=== PATIENT | female | born 1950 | race Caucasian/White ===

== ENCOUNTER → 2016-12-13 | Outpatient (CLI) | payer MEDICARE ==
--- NOTE | 2016-12-14 07:19 | MM ---
Reason for exam: additional evaluation requested from abnormal screening. Last mammogram was performed 1 month ago. History: Patient is postmenopausal, history of other cancer, and is nulliparous. Physical Findings: Nurse Summary: 1cm nodule in the right breast at 1 o'clock (nurse kp). MG Work Up Mamm w CAD RT MLO and LM view(s) were taken of the right breast. Prior study comparison: November 24, 2016, bilateral MG screening mammo w CAD. November 19, 2015, bilateral MG screening mammo w CAD. The breast tissue is heterogeneously dense. This may lower the sensitivity of mammography. Skin marker corresponds to a sebaceous cyst. Ultrasound recommended for palpable. These results were verbally communicated with the patient and result sheet given to the patient on 12/13/16. ASSESSMENT: Incomplete: need additional imaging evaluation, BI-RAD 0 RECOMMENDATION: Ultrasound of the right breast.
--- NOTE | 2016-12-14 07:20 | USB ---
Reason for exam: additional evaluation requested from abnormal screening. History: Patient is postmenopausal, history of other cancer, and is nulliparous. US Breast Workup Limited RT Right breast ultrasound demonstrates no cystic or solid lesion seen. These results were verbally communicated with the patient and result sheet given to the patient on 12/13/16. ASSESSMENT: Negative, BI-RAD 1 RECOMMENDATION: Return to routine screening mammogram schedule for both breasts. Manage patient on a clinical basis.
== END | disposition home or self-care (01) ==
LOC: RADMAMWWP 10:48
PROVIDERS: ATTEND Family Medicine
DX: R92.2 Inconclusive mammogram (principal); R92.8 Other abnormal and inconclusive findings on diagnostic imaging of breast
CPT/HCPCS: 76642; G0206

== ENCOUNTER → 2018-01-08 | Outpatient (CLI) | payer MEDICARE ==
--- NOTE | 2018-01-09 11:24 | MM ---
Reason for exam: screening (asymptomatic). Last mammogram was performed 1 year and 1 month ago. History: Patient is postmenopausal, history of other cancer, and is nulliparous. Physical Findings: A clinical breast exam by your physician is recommended on an annual basis and results should be correlated with mammographic findings. MG Screening Mammo w CAD Bilateral CC and MLO view(s) were taken. Prior study comparison: December 13, 2016, right breast MG work up mamm w CAD RT. November 24, 2016, bilateral MG screening mammo w CAD. The breast tissue is heterogeneously dense. This may lower the sensitivity of mammography. There is no discrete abnormality. No significant changes when compared with prior studies. ASSESSMENT: Negative, BI-RAD 1 RECOMMENDATION: Routine screening mammogram of both breasts in 1 year.
== END | disposition home or self-care (01) ==
LOC: RADMAMWWP 14:15
PROVIDERS: ATTEND Family Medicine
DX: Z12.31 Encounter for screening mammogram for malignant neoplasm of breast (principal)
CPT/HCPCS: 77067

== ENCOUNTER → 2019-01-10 | Outpatient (CLI) | payer MEDICARE ==
--- NOTE | 2019-01-10 16:18 | BD ---
EXAMINATION TYPE: Axial Bone Density DATE OF EXAM: 01/10/2019 COMPARISON: 09.23.2014 CLINICAL HISTORY: 68 YR OLD FEMALE....ICD-10 CODE: Z78.0 POST MENOPAUSAL W/O HRT Height: 65.2 Weight: 226 FRAX RISK QUESTIONS: Family History (Parent hip fracture): YES, SPINE FX ONLY History of Fracture in Adulthood: YES RISK FACTORS HISTORY OF: HX OF BOTH FEET BROKEN, LT HAND FX....> 50 YRS OLD, RT COLLAR BONE CHILD Family History of Osteoporosis: YES, HER MOTHER WITH COMPRESSION FX OF SPINE Postmenopausal woman: YES, AT 48 YRS OLD MEDICATIONS: Osteoporosis Medications: IN THE PAST ONLY, STOPPED 10 YRS AGO Additional Medications: BP MEDS, STATINS FOR CHOLESTEROL, VIT D AND CALCIUM Additional History: HYPERTENSION, CHOLESTEROL EXAM MEASUREMENTS: Bone mineral densitometry was performed using the [employer] System. Bone mineral density as measured about the Lumbar spine is: ----- L1-L4(G/cm2): 1.289 T Score Values are as follows: ----- L1: 0.4 ----- L2: 0.7 ----- L3: 0.9 ----- L4: 1.4 ----- L1-L4: 0.9 Bone mineral density has: Increased 3.4% since study of: 09.23.2014 Bone mineral density about the R hip (g/cm2): 0.970 Bone mineral density about the L hip (g/cm2): 1.084 T Score values are as follows: -----R Neck: -0.6 -----L Neck: -0.7 -----R Total: -0.3 -----L Total: 0.6 Bone mineral density has: Decreased -1.6% since study of: 09.23.2014 FRAX%s: THERE IS A 11.9% CHANCE FOR A MAJOR OSTEOPOROTIC FX AND A 0.8% FOR HIP....PROBABILITY OF FX IN 10 YRS TIME IMPRESSION: Normal (Values between +1 and -1 indicate normal bone mass). Consider repeating this study in 5 year s or sooner if there is some new clinical indication. NOTE: T-SCORE=SD OF THE YOUNG ADULT MEAN.
--- NOTE | 2019-01-11 09:45 | MM ---
Reason for exam: screening (asymptomatic). Last mammogram was performed 1 year ago. History: Patient is postmenopausal, history of other cancer, and is nulliparous. Physical Findings: A clinical breast exam by your physician is recommended on an annual basis and results should be correlated with mammographic findings. MG Screening Mammo w CAD Bilateral CC and MLO view(s) were taken. XCCL view(s) were taken of the left breast. Prior study comparison: January 08, 2018, bilateral MG screening mammo w CAD. December 13, 2016, right breast MG work up mamm w CAD RT. The breast tissue is heterogeneously dense. This may lower the sensitivity of mammography. No suspicious abnormality. No significant changes when compared with prior studies. ASSESSMENT: Negative, BI-RAD 1 RECOMMENDATION: Routine screening mammogram of both breasts in 1 year.
== END | disposition home or self-care (01) ==
LOC: RADMAMWWP 13:33
PROVIDERS: ATTEND Family Medicine
DX: Z12.31 Encounter for screening mammogram for malignant neoplasm of breast (principal); Z13.820 Encounter for screening for osteoporosis; Z78.0 Asymptomatic menopausal state
CPT/HCPCS: 77067; 77080

== ENCOUNTER 2019-08-27 10:55 | Inpatient (IN) | payer MEDICARE ==
--- NOTE | 2019-08-27 11:50 | ED ---
General Adult HPI - General Chief complaint: Recheck/Abnormal Lab/Rx Stated complaint: Low Blood Time Seen by Provider: 08/27/19 11:05 Source: patient, RN notes reviewed Mode of arrival: ambulatory Limitations: no limitations - History of Present Illness Initial comments: This is a 68-year-old female presents emergency Department complaining that for the last week she's had a low-grade fever and a slight cough. Patient states also for the last 2 weeks she's been extremely tired. Patient states she has been treated with Augmentin Levaquin steroids and breathing treatments. Patient states nothing has seemed to help. Patient states she went to her primary medical care doctor's office couple days ago and he ozzy blood and today she got a call stating her hemoglobin was extremely low. Patient denies any black or bloody stools per patient denies any history of anemia. Patient denies any chest pain. Patient states she is short of breath anytime she exerts herself. Patient denies any abdominal pain patient denies any nausea vomiting diarrhea. Patient denies headache patient denies lightheadedness or dizziness. - Related Data Home Medications Medication Instructions Recorded Confirmed Aspirin EC [Ecotrin] 325 mg PO DAILY PRN 08/27/19 08/27/19 Bisoprolol/Hydrochlorothiazide 1 tab PO DAILY 08/27/19 08/27/19 [Bisoprolol-Hctz 5-6.25 mg Tab] Multivitamins, Thera [Multivitamin 1 tab PO DAILY 08/27/19 08/27/19 (formulary)] Allergies Allergy/AdvReac Type Severity Reaction Status Date / Time adhesive tape Allergy Rash/Hives Verified 08/27/19 11:17 Review of Systems ROS Statement: Those systems with pertinent positive or pertinent negative responses have been documented in the HPI. ROS Other: All systems not noted in ROS Statement are negative. Past Medical History Past Medical History: Hypertension History of Any Multi-Drug Resistant Organisms: None Reported Past Surgical History: Orthopedic Surgery Past Psychological History: No Psychological Hx Reported Smoking Status: Never smoker Past Alcohol Use History: None Reported Past Drug Use History: None Reported General Exam - General Exam Comments Initial Comments: GENERAL: Patient is well-developed and well-nourished. Patient is nontoxic and well- hydrated and is in mild distress. ENT: Neck is soft and supple. No significant lymphadenopathy is noted. Oropharynx is clear. Moist mucous membranes. Neck has full range of motion without eliciting any pain. EYES: The sclera were anicteric and conjunctiva were pink and moist. Extraocular movements were intact and pupils were equal round and reactive to light. Eyelids were unremarkable. PULMONARY: Patient has some scattered crackles in the bases. CARDIOVASCULAR: Patient is tachycardic at about 110 beats a minute ABDOMEN: Soft and nontender with normal bowel sounds. No palpable organomegaly was note d. There is no palpable pulsatile mass. SKIN: Patient's skin is pale RECTAL: On rectal exam there was no masses palpated stool is of normal color. NEUROLOGIC: Patient is alert and oriented x3. Cranial nerves II through XII are grossly intact. Motor and sensory are also intact. Normal speech, volume and content. Symmetrical smile. MUSCULOSKELETAL: Normal extremities with adequate strength and full range of motion. LYMPHATICS: No significant lymphadenopathy is noted PSYCHIATRIC: Normal psychiatric evaluation. Limitations: no limitations Course Vital Signs 08/27/19 08/27/19 08/27/19 11:08 11:30 12:00 Temperature 98.8 F Pulse Rate 102 H 101 H 96 Respiratory 18 20 20 Rate Blood Pressure 123/51 140/58 133/54 O2 Sat by Pulse 99 100 94 L Oximetry 08/27/19 13:42 Temperature 98.8 F Pulse Rate 87 Respiratory 20 Rate Blood Pressure 121/56 O2 Sat by Pulse 98 Oximetry Medical Decision Making - Medical Decision Making Chest x-ray shows no acute abnormality. I spoke with Dr. Call about admitting the patient and he agreed to admit the patient I consult to GI neck consult hematology. I also gave the patient 2 units of packed red blood cells her. Hemoglobin on the floor. - Lab Data Result diagrams: 08/27/19 11:28 08/27/19 11:28 Lab Results 08/27/19 08/27/19 08/27/19 Range/Units 11:28 11:28 11:28 WBC 4.9 (3.8-10.6) k/uL RBC 1.70 L (3.80-5.40) m/uL Hgb 4.8 L* (11.4-16.0) gm/dL Hct 13.7 L* (34.0-46.0) % MCV 80.4 (80.0-100.0) fL MCH 28.1 (25.0-35.0) pg MCHC 34.9 (31.0-37.0) g/dL RDW 15.1 (11.5-15.5) % Plt Count 317 (150-450) k/uL Neutrophils % 78 % Lymphocytes % 13 % Monocytes % 6 % Eosinophils % 1 % Basophils % 0 % Neutrophils # 3.8 (1.3-7.7) k/uL Lymphocytes # 0.7 L (1.0-4.8) k/uL Monocytes # 0.3 (0-1.0) k/uL Eosinophils # 0.0 (0-0.7) k/uL Basophils # 0.0 (0-0.2) k/uL PT (9.0-12.0) sec INR (<1.2) APTT (22.0-30.0) sec Sodium (137-145) mmol/L Potassium (3.5-5.1) mmol/L Chloride (98-107) mmol/L Carbon Dioxide (22-30) mmol/L Anion Gap mmol/L BUN (7-17) mg/dL Creatinine (0.52-1.04) mg/dL Est GFR (CKD-EPI)AfAm (>60 ml/min/1.73 sqM) Est GFR (CKD-EPI)NonAf (>60 ml/min/1.73 sqM) Glucose (74-99) mg/dL Plasma Lactic Acid Skip (0.7-2.0) mmol/L Calcium (8.4-10.2) mg/dL Magnesium (1.6-2.3) mg/dL Total Bilirubin (0.2-1.3) mg/dL AST (14-36) U/L ALT (9-52) U/L Alkaline Phosphatase (38-126) U/L NT-Pro-B Natriuret Pep pg/mL Total Protein (6.3-8.2) g/dL Albumin (3.5-5.0) g/dL Urine Color Urine Appearance (Clear) Urine pH (5.0-8.0) Ur Specific [place] (1.001-1.035) Urine Protein (Negative) Urine Glucose (UA) (Negative) Urine Ketones (Negative) Urine Blood (Negative) Urine Nitrite (Negative) Urine Bilirubin (Negative) Urine Urobilinogen (<2.0) mg/dL Ur Leukocyte Esterase (Negative) Urine WBC (0-5) /hpf Ur Squamous Epith Cells (0-4) /hpf Uric Acid Crystals (None) /hpf Hyaline Casts (0-2) /lpf Urine Mucus (None) /hpf Stool Occult Blood Negative (Negative) Blood Type AB Positive Blood Type Confirm Blood Type Recheck No Previous Record Bld Type Recheck Status CABO Indicated Antibody Screen NEGATIVE Crossmatch See Detail Spec Expiration Date 08/30/2019232708/27/19 08/27/19 08/27/19 Range/Units 11:28 11:28 11:28 WBC (3.8-10.6) k/uL RBC (3.80-5.40) m/uL Hgb (11.4-16.0) gm/dL Hct (34.0-46.0) % MCV (80.0-100.0) fL MCH (25.0-35.0) pg MCHC (31.0-37.0) g/dL RDW (11.5-15.5) % Plt Count (150-450) k/uL Neutrophils % % Lymphocytes % % Monocytes % % Eosinophils % % Basophils % % Neutrophils # (1.3-7.7) k/uL Lymphocytes # (1.0-4.8) k/uL Monocytes # (0-1.0) k/uL Eosinophils # (0-0.7) k/uL Basophils # (0-0.2) k/uL PT 11.4 (9.0-12.0) sec INR 1.1 (<1.2) APTT 22.8 (22.0-30.0) sec Sodium 139 (137-145) mmol/L Potassium 4.3 (3.5-5.1) mmol/L Chloride 106 (98-107) mmol/L Carbon Dioxide 22 (22-30) mmol/L Anion Gap 11 mmol/L BUN 18 H (7-17) mg/dL Creatinine 0.69 (0.52-1.04) mg/dL Est GFR (CKD-EPI)AfAm >90 (>60 ml/min/1.73 sqM) Est GFR (CKD-EPI)NonAf 89 (>60 ml/min/1.73 sqM) Glucose 170 H (74-99) mg/dL Plasma Lactic Acid Skip (0.7-2.0) mmol/L Calcium 8.7 (8.4-10.2) mg/dL Magnesium 2.0 (1.6-2.3) mg/dL Total Bilirubin 0.6 (0.2-1.3) mg/dL AST 34 (14-36) U/L ALT 53 H (9-52) U/L Alkaline Phosphatase 86 (38-126) U/L NT-Pro-B Natriuret Pep 646 pg/mL Total Protein 5.8 L (6.3-8.2) g/dL Albumin 3.5 (3.5-5.0) g/dL Urine Color Urine Appearance (Clear) Urine pH (5.0-8.0) Ur Specific [place] (1.001-1.035) Urine Protein (Negative) Urine Glucose (UA) (Negative) Urine Ketones (Negative) Urine Blood (Negative) Urine Nitrite (Negative) Urine Bilirubin (Negative) Urine Urobilinogen (<2.0) mg/dL Ur Leukocyte Esterase (Negative) Urine WBC (0-5) /hpf Ur Squamous Epith Cells (0-4) /hpf Uric Acid Crystals (None) /hpf Hyaline Casts (0-2) /lpf Urine Mucus (None) /hpf Stool Occult Blood (Negative) Blood Type Blood Type Confirm Blood Type Recheck Bld Type Recheck Status Antibody Screen Crossmatch Spec Expiration Date 08/27/19 08/27/19 08/27/19 Range/Units 11:28 12:39 13:10 WBC (3.8-10.6) k/uL RBC (3.80-5.40) m/uL Hgb (11.4-16.0) gm/dL Hct (34.0-46.0) % MCV (80.0-100.0) fL MCH (25.0-35.0) pg MCHC (31.0-37.0) g/dL RDW (11.5-15.5) % Plt Count (150-450) k/uL Neutrophils % % Lymphocytes % % Monocytes % % Eosinophils % % Basophils % % Neutrophils # (1.3-7.7) k/uL Lymphocytes # (1.0-4.8) k/uL Monocytes # (0-1.0) k/uL Eosinophils # (0-0.7) k/uL Basophils # (0-0.2) k/uL PT (9.0-12.0) sec INR (<1.2) APTT (22.0-30.0) sec Sodium (137-145) mmol/L Potassium (3.5-5.1) mmol/L Chloride (98-107) mmol/L Carbon Dioxide (22-30) mmol/L Anion Gap mmol/L BUN (7-17) mg/dL Creatinine (0.52-1.04) mg/dL Est GFR (CKD-EPI)AfAm (>60 ml/min/1.73 sqM) Est GFR (CKD-EPI)NonAf (>60 ml/min/1.73 sqM) Glucose (74-99) mg/dL Plasma Lactic Acid Skip 1.9 (0.7-2.0) mmol/L Calcium (8.4-10.2) mg/dL Magnesium (1.6-2.3) mg/dL Total Bilirubin (0.2-1.3) mg/dL AST (14-36) U/L ALT (9-52) U/L Alkaline Phosphatase (38-126) U/L NT-Pro-B Natriuret Pep pg/mL Total Protein (6.3-8.2) g/dL Albumin (3.5-5.0) g/dL Urine Color Yellow Urine Appearance Turbid H (Clear) Urine pH 5.0 (5.0-8.0) Ur Specific [place] 1.016 (1.001-1.035) Urine Protein Negative (Negative) Urine Glucose (UA) Negative (Negative) Urine Ketones Negative (Negative) Urine Blood Negative (Negative) Urine Nitrite Negative (Negative) Urine Bilirubin Negative (Negative) Urine Urobilinogen <2.0 (<2.0) mg/dL Ur Leukocyte Esterase Negative (Negative) Urine WBC 1 (0-5) /hpf Ur Squamous Epith Cells 1 (0-4) /hpf Uric Acid Crystals Occasional H (None) /hpf Hyaline Casts 11 H (0-2) /lpf Urine Mucus Occasional H (None) /hpf Stool Occult Blood (Negative) Blood Type Blood Type Confirm AB Positive Blood Type Recheck Bld Type Recheck Status Antibody Screen Crossmatch Spec Expiration Date Critical Care Time Critical Care Time: Yes Total Critical Care Time: 35 Disposition Clinical Impression: Anemia Disposition: ADMITTED IP TO THIS HOSP Referrals: Silvino Call MD [Primary Care Provider] - 1-2 days Time of Disposition: 13:46
[2019-08-27 11:59] LABS: Basophils % (A) 0 %; Eosinophils % (A) 1 %; Lymphocytes # (A) 0.7 k/uL (1.0-4.8); Lymphocytes % (A) 13 %; MCH 28.1 pg (25.0-35.0); MCHC 34.9 g/dL (31.0-37.0); MCV 80.4 fL (80.0-100.0); Mean Platelet Volume 7.1; Monocytes # (A) 0.3 k/uL (0-1.0); Monocytes % (A) 6 %; Neutrophils # (A) 3.8 k/uL (1.3-7.7); Neutrophils % (A) 78 %; Platelet Count 317 k/uL (150-450); RDW 15.1 % (11.5-15.5); WBC 4.9 k/uL (3.8-10.6)
[2019-08-27 12:12] LABS: ALT 53 U/L (9-52); AST 34 U/L (14-36); African American GFR (CKD) >90 (>60 ml/min/1.73 sqM); Albumin 3.5 g/dL (3.5-5.0); Alkaline Phosphatase 86 U/L (38-126); Anion Gap 11 mmol/L; Blood Urea Nitrogen 18 mg/dL (7-17); Calcium 8.7 mg/dL (8.4-10.2); Carbon Dioxide 22 mmol/L (22-30); Chloride 106 mmol/L (98-107); Glucose 170 mg/dL (74-99); Potassium 4.3 mmol/L (3.5-5.1); Sodium 139 mmol/L (137-145); Total Bilirubin 0.6 mg/dL (0.2-1.3); Total Protein 5.8 g/dL (6.3-8.2)
[2019-08-27 12:13] LABS: HCT 13.7 % (34.0-46.0); HGB 4.8 gm/dL (11.4-16.0)
[2019-08-27 12:18] LABS: INR 1.1 (<1.2); Partial Thromboplastin Time 22.8 sec (22.0-30.0); Prothrombin Time 11.4 sec (9.0-12.0)
[2019-08-27] MEDS ORDERED: SODIUM CHLORIDE 0.9% 500 ML 500 ML IV ONE (12:36)
--- NOTE | 2019-08-27 12:40 | XR ---
EXAMINATION TYPE: XR chest 2V DATE OF EXAM: 08/27/2019 COMPARISON: NONE TECHNIQUE: PA and lateral views submitted. HISTORY: Difficulty breathing FINDINGS: The lungs are clear and there is no pneumothorax, pleural effusion, or focal pneumonia. Degenerative change of the spine. IMPRESSION: 1. No acute process.
[2019-08-27 13:40] LABS: Appearance,Urine Turbid (Clear); Bilirubin,Urine Negative (Negative); Blood,Urine Negative (Negative); Color,Urine Yellow; Glucose,Urine (UA) Negative (Negative); Hyaline Casts,Urine 11 /lpf (0-2); Ketones,Urine Negative (Negative); Leukocyte Esterase,Urine Negative (Negative); Mucus,Urine Occasional /hpf; Nitrite,Urine Negative (Negative); Protein,Urine Negative (Negative); Specific Gravity,Urine 1.016 (1.001-1.035); Squamous Epithelial Cell,Urine 1 /hpf (0-4); Uric Acid Crystals,Urine Occasional /hpf; Urobilinogen,Urine <2.0 mg/dL (<2.0)
[2019-08-27] MEDS ORDERED: SODIUM CHLORIDE 0.9% 1,000 ML IV ONE (13:53)
[2019-08-27] MEDS ORDERED: PEG 3350-NA SULF,BICARB,CL/KCL 4,000 ML BOTTLE PO ONE (17:00)
--- NOTE | 2019-08-27 21:32 | CONS ---
CONSULTATION DATE OF SERVICE: August 27, 2019. REQUESTING PHYSICIAN: Dr. Call. REASON FOR CONSULTATION: Severe symptomatic anemia. HISTORY OF PRESENT ILLNESS: The patient is a 65-year-old pleasant white female who was admitted to hospital with severe symptomatic anemia and hemoglobin of 4.8 g/dL. She was seeing Dr. Call on an outpatient basis for acute upper respiratory tract infection/sinus infection and was treated with antibiotics and steroids. She continued to remain symptomatic and was feeling weak and tired and some shortness of breath and hence she had routine labs done. Hemoglobin was 4.8. She was advised to go to the emergency room and subsequently admitted to the hospital for further evaluation. She received 1 unit of PRBCs transfusion and a 2nd unit is being infused currently. She denies any GI symptoms. No abdominal pain. No nausea, vomiting. No rectal bleeding or melena. Last colonoscopy was about 4 or [address] Matute and according to the patient it was within normal limits. She denies any recent NSAID use. PAST MEDICAL HISTORY: Significant for hypertension. MEDICATIONS: At home include aspirin, multivitamin, bisoprolol. ALLERGIES: ADHESIVE TAPE. SOCIAL HISTORY: No smoking. No alcohol use. FAMILY HISTORY: Mom had hypertension. REVIEW OF SYSTEMS: CARDIOPULMONARY: No chest pain, shortness of breath. GENITOURINARY: No dysuria or hematuria. MUSCULOSKELETAL: Unremarkable. SKIN: Unremarkable. ENDOCRINE: Unremarkable. PSYCHIATRIC: Unremarkable. NEUROLOGICAL: Unremarkable. ENT/VISION: Unremarkable. CONSTITUTIONAL: No recent weight loss. No fever, chills, night sweats. PHYSICAL EXAMINATION: She appears comfortable. No apparent distress. Vital signs are stable. Blood pressure is 130/86, pulse rate 89, temperature 98.9. HEENT examination unremarkable. Conjunctivae pink. Sclerae anicteric. Oral cavity no lesions. NECK: No JVD or lymph node enlargement. CHEST was clear to auscultation. HEART: Regular rate and rhythm. ABDOMEN: Soft. Bowel sounds are positive. No organomegaly. EXTREMITIES: No pedal edema. SKIN no rashes. NEUROLOGIC: Alert and oriented x3. No focal deficits. LABS: Done at the time of admission to the hospital revealed hemoglobin 4.8, WBC 4.9, platelets 317. INR is normal. BUN 18, creatinine 0.61. Rest of the labs are within normal limits. IMPRESSION: Severe symptomatic anemia with a hemoglobin of 4.8 g/dL but clinically no evidence of active gastrointestinal bleed. Most likely we are dealing with occult gastrointestinal blood loss. Her last colonoscopy was about 4-5 years ago and according to the patient, had a small polyp. RECOMMENDATIONS: 1. Clear liquid diet. 2. We will proceed with an EGD and colonoscopy tomorrow. 3. Discussed with the patient, the risks, benefits and complications of the procedure and she is agreeable to it. Thank you for this consultation. MMBJL / IJN: [id number] /
--- NOTE | 2019-08-27 23:44 | P.HPIM ---
History of Present Illness H&P Date: 08/27/19 Chief Complaint: Shortness of breath with chronic cough. This is a history and physical a 68-year-old white female with known history of hypertension who for the last 3-4 weeks has been complaining of worsening cough. 2 courses of antibiotics with chest x-ray was did not resolve her symptomatology. We noted getting screening laboratories which showed significant blood loss anemia. She is now received 2 units PRBC and does feel somewhat better. No history of hematemesis or hematochezia. No history of GI bleeding in the past. No melena stated. Review of Systems Constitutional: Reports lethargy, Reports weakness Eyes: denies blurred vision, denies pain Ears, nose, mouth and throat: Denies headache, Denies sore throat Cardiovascular: Denies chest pain, Denies shortness of breath Respiratory: Reports cough Gastrointestinal: Denies abdominal pain, Denies diarrhea, Denies nausea, Denies vomiting Genitourinary: Denies dysuria, Denies hematuria Musculoskeletal: Denies myalgias Past Medical History Past Medical History: Hypertension History of Any Multi-Drug Resistant Organisms: None Reported Past Surgical History: Orthopedic Surgery Past Psychological History: No Psychological Hx Reported Smoking Status: Never smoker Past Alcohol Use History: None Reported Past Drug Use History: None Reported Medications and Allergies Home Medications Medication Instructions Recorded Confirmed Type Aspirin EC [Ecotrin] 325 mg PO DAILY PRN 08/27/19 08/27/19 History Bisoprolol/Hydrochlorothiazide 1 tab PO DAILY 08/27/19 08/27/19 History [Bisoprolol-Hctz 5-6.25 mg Tab] Multivitamins, Thera [Multivitamin 1 tab PO DAILY 08/27/19 08/27/19 History (formulary)] Allergies Allergy/AdvReac Type Severity Reaction Status Date / Time adhesive tape Allergy Rash/Hives Verified 08/27/19 11:17 Physical Exam Vitals: Vital Signs Temp Pulse Pulse Resp BP BP Pulse Ox 08/27/19 19:58 98.5 F 96 18 147/65 99 08/27/19 19:45 98.5 F 96 18 147/65 99 08/27/19 17:15 98.8 F 92 16 142/64 08/27/19 16:55 98.9 F 89 16 130/59 08/27/19 16:50 98.1 F 93 16 132/62 08/27/19 16:00 98.4 F 87 16 133/63 94 L 08/27/19 15:28 99.0 F 89 20 138/71 95 08/27/19 14:21 98.9 F 95 20 131/61 98 08/27/19 13:51 98.8 F 86 20 118/60 98 08/27/19 13:42 98.8 F 87 20 121/56 98 08/27/19 13:41 98.8 F 90 20 124/55 97 08/27/19 12:00 96 20 133/54 94 L 08/27/19 11:30 101 H 20 140/58 100 08/27/19 11:08 98.8 F 102 H 18 123/51 99 Intake and Output 08/27/19 08/27/19 08/28/19 14:59 22:59 06:59 Intake Total 0 620 Balance 0 620 Intake: Blood Product 0 620 Rc As-1 Unit 310 [id number] Rc As-1 Unit 0 310 [id number] Other: # Voids 1 2 # Bowel Movements 4 Weight 99.337 kg Results CBC & Chem 7: 08/27/19 11:28 08/27/19 11:28 Labs: Abnormal Lab Results - Last 24 Hours (Table) 08/27/19 08/27/19 08/27/19 Range/Units 11:28 11:28 11:28 RBC 1.70 L (3.80-5.40) m/uL Hgb 4.8 L* (11.4-16.0) gm/dL Hct 13.7 L* (34.0-46.0) % Lymphocytes # 0.7 L (1.0-4.8) k/uL BUN 18 H (7-17) mg/dL Glucose 170 H (74-99) mg/dL ALT 53 H (9-52) U/L Total Protein 5.8 L (6.3-8.2) g/dL Urine Appearance (Clear) Uric Acid Crystals (None) /hpf Hyaline Casts (0-2) /lpf Urine Mucus (None) /hpf Crossmatch See Detail 08/27/19 Range/Units 13:10 RBC (3.80-5.40) m/uL Hgb (11.4-16.0) gm/dL Hct (34.0-46.0) % Lymphocytes # (1.0-4.8) k/uL BUN (7-17) mg/dL Glucose (74-99) mg/dL ALT (9-52) U/L Total Protein (6.3-8.2) g/dL Urine Appearance Turbid H (Clear) Uric Acid Crystals Occasional H (None) /hpf Hyaline Casts 11 H (0-2) /lpf Urine Mucus Occasional H (None) /hpf Crossmatch Assessment and Plan (1) Hypertension Current Visit: Yes Status: Acute Code(s): I10 - ESSENTIAL (PRIMARY) HYPERTENSION SNOMED Code(s): 69039374 (2) Cough Current Visit: Yes Status: Acute Code(s): R05 - COUGH SNOMED Code(s): 12645252 (3) Anemia Current Visit: Yes Status: Acute Code(s): D64.9 - ANEMIA, UNSPECIFIED SNOMED Code(s): 636775760 Plan: Appreciate multiple consultants input. Serial CBC with CBC in a.m. Reconcile home medications. Await EGD with colonoscopy. Prognosis is guarded due to her probable insidious blood loss. Had a long discussion regarding initial workup and ramifications. The patient is a full code otherwise. Time with Patient: Greater than 30
[2019-08-28 01:49] LABS: Iron Saturation 88.98 (12.00-45.00)
[2019-08-28 02:03] LABS: Ferritin 698.8 ng/mL (10.0-291.0)
[2019-08-28 03:29] LABS: Basophils % (A) 0 %; Eosinophils # (A) 0.1 k/uL (0-0.7); Eosinophils % (A) 1 %; Lymphocytes # (A) 0.7 k/uL (1.0-4.8); Lymphocytes % (A) 15 %; MCH 29.6 pg (25.0-35.0); MCHC 35.2 g/dL (31.0-37.0); Mean Platelet Volume 8.4; Monocytes # (A) 0.3 k/uL (0-1.0); Monocytes % (A) 7 %; Neutrophils # (A) 3.5 k/uL (1.3-7.7); Neutrophils % (A) 75 %; Platelet Count 281 k/uL (150-450); RBC 2.18 m/uL (3.80-5.40); RDW 14.7 % (11.5-15.5); WBC 4.6 k/uL (3.8-10.6)
[2019-08-28 03:30] LABS: HCT 18.3 % (34.0-46.0)
[2019-08-28 03:31] LABS: HGB 6.4 gm/dL (11.4-16.0)
--- NOTE | 2019-08-28 08:22 | P.PN ---
Subjective Progress Note Date: 08/28/19 Principal diagnosis: Anemia. The patient is 69-year-old white female with known history of hypertension who has come in with significant anemia. She needed 1 more unit of PRBC today. Otherwise, she is resting appropriately awaiting EGD with colonoscopy. No significant fever or chills. No nausea, vomiting or diarrhea. No history of melena or hematochezia stated. No hematuria noted. Objective - Vital Signs Vital signs: Vital Signs Temp 98.3 F 08/28/19 08:00 Pulse 94 08/28/19 08:00 Resp 18 08/28/19 08:00 BP 139/69 08/28/19 08:00 Pulse Ox 93 L 08/28/19 08:00 Intake & Output 08/27/19 08/28/19 08/28/19 18:59 06:59 18:59 Intake Total 310 3310 Balance 310 3310 Weight 99.337 kg 100.5 kg Intake: Oral 3000 Blood Product 310 310 Rc As-1 Unit 0 310 [id number] Rc As-1 Unit 0 [id number] Rc As-1 Unit 310 [id number] Other: Voiding Method Toilet # Voids 1 2 # Bowel Movements 3 - Constitutional General appearance: Present: obese - EENT Eyes: Absent: abnormal pupil - Neck Neck: Absent: lymphadenopathy - Respiratory Respiratory: bilateral: CTA - Cardiovascular Rhythm: regular Heart sounds: normal: S1, S2 Abnormal Heart Sounds: Absent: S3 Gallop - Gastrointestinal General gastrointestinal: Present: soft. Absent: splenomegaly, tenderness - Neurologic Neurologic: Present: CNII-XII intact. Absent: focal deficits - Labs CBC & Chem 7: 08/28/19 03:02 08/27/19 11:28 Labs: Abnormal Lab Results - Last 24 Hours (Table) 08/27/19 08/27/19 08/27/19 Range/Units 11:28 11:28 11:28 RBC 1.70 L (3.80-5.40) m/uL Hgb 4.8 L* (11.4-16.0) gm/dL Hct 13.7 L* (34.0-46.0) % Lymphocytes # 0.7 L (1.0-4.8) k/uL BUN 18 H (7-17) mg/dL Glucose 170 H (74-99) mg/dL Iron (50-170) ug/dL Iron Saturation (12.00-45.00) Ferritin (10.0-291.0) ng/mL ALT 53 H (9-52) U/L Total Protein 5.8 L (6.3-8.2) g/dL Urine Appearance (Clear) Uric Acid Crystals (None) /hpf Hyaline Casts (0-2) /lpf Urine Mucus (None) /hpf Crossmatch See Detail 08/27/19 08/27/19 08/28/19 Range/Units 11:28 13:10 03:02 RBC 2.18 L (3.80-5.40) m/uL Hgb 6.4 L* D (11.4-16.0) gm/dL Hct 18.3 L* (34.0-46.0) % Lymphocytes # 0.7 L (1.0-4.8) k/uL BUN (7-17) mg/dL Glucose (74-99) mg/dL Iron 218 H (50-170) ug/dL Iron Saturation 88.98 H (12.00-45.00) Ferritin 698.8 H (10.0-291.0) ng/mL ALT (9-52) U/L Total Protein (6.3-8.2) g/dL Urine Appearance Turbid H (Clear) Uric Acid Crystals Occasional H (None) /hpf Hyaline Casts 11 H (0-2) /lpf Urine Mucus Occasional H (None) /hpf Crossmatch Assessment and Plan (1) Hypertension Current Visit: Yes Status: Acute Code(s): I10 - ESSENTIAL (PRIMARY) HYPERTENSION SNOMED Code(s): 30142305 (2) Cough Current Visit: Yes Status: Acute Code(s): R05 - COUGH SNOMED Code(s): 54857180 (3) Anemia Current Visit: Yes Status: Acute Code(s): D64.9 - ANEMIA, UNSPECIFIED SNOMED Code(s): 295764329 Plan: Await testing today. Check CBC in a.m. Appreciate hematology input. Prognosis is guarded at this time. She orders otherwise. Time with Patient: Less than 30
[2019-08-28 12:14] LABS: Basophils % (A) 0 %; Eosinophils % (A) 1 %; HCT 21.7 % (34.0-46.0); HGB 7.1 gm/dL (11.4-16.0); Lymphocytes # (A) 0.6 k/uL (1.0-4.8); Lymphocytes % (A) 13 %; MCHC 32.9 g/dL (31.0-37.0); MCV 85.2 fL (80.0-100.0); Mean Platelet Volume 9.2; Monocytes # (A) 0.2 k/uL (0-1.0); Monocytes % (A) 5 %; Neutrophils # (A) 3.8 k/uL (1.3-7.7); Neutrophils % (A) 79 %; Platelet Count 251 k/uL (150-450); RBC 2.55 m/uL (3.80-5.40); RDW 14.7 % (11.5-15.5); WBC 4.8 k/uL (3.8-10.6)
[2019-08-28] MEDS ORDERED: LIDOCAINE 1% INJ 10MG/ML (20 ML MDV) ONE (14:41)
[2019-08-28] MEDS ORDERED: PROPOFOL 10 MG/ML 20 ML VIAL IV ONE (14:41)
[2019-08-28] MEDS ORDERED: IV FLUID CONTINUATION 1,000 ML IV ONE (14:45)
--- NOTE | 2019-08-28 15:09 | P.PCN ---
Date of Procedure: 08/28/19 Procedure(s) Performed: Brief history: Patient is a pleasant 69-year-old white female, admitted hospital with severe symptomatic anemia and hemoglobin of 4.8 g/dL. She denies any GI symptoms. She received 3 units of blood transfusion. She is scheduled for an upper endoscopy as well as colonoscopy today. Procedure performed: Esophagogastroduodenoscopy biopsy Colonoscopy with biopsy Preoperative diagnosis: Severe symptomatic anemia with a hemoglobin of 4.8 g/dL Anesthesia: MAC Procedure: After informed consent was obtained from the patient was brought into the endoscopy unit and IV sedation was administered by anesthesia under continuous monitoring. Initially upper endoscopy was done. The Olympus GF 160 video endoscope was inserted inserted into the mouth and esophagus intubated without any difficulty and was gradually advanced into the stomach and duodenum and carefully examined. The bulb and second part of the duodenum appeared normal. The scope was then withdrawn into the stomach adequately insufflated with air and upon careful examination the antrum and body, cardia and fundus appeared normal. The scope was then withdrawn into the esophagus. The GE junction was located at 40 cm to the incisors. It appeared regular with no erythema erosions or ulcerations. Rest of the esophagus appeared normal. Patient tolerated the procedure well. At this time the patient continued to remain sedation. Initial digital rectal examination was normal. Olympus CF 160 video colonoscope was then inserted into the rectum and gradually advanced to the cecum without any difficulty. Careful examination was performed as the scope was gradually being withdrawn. The prep was excellent. The cecum, ascending colon normal. In the transverse colon there was a 5 mm sessile polyp that was removed by cold biopsy. Rest of the, transverse colon, descending colon, sigmoid colon and rectum appeared normal. On the left sided diverticulosis seen. Retroflexion was performed in the rectum and no lesions were noted. Patient tolerated the procedure well. Impression: 1. Upper endoscopy revealed: a) multiple scattered erosions in the antrum of the stomach b) 2 cm ulcerated broad-based polyp in the distal body of the stomach status post biopsy c) 1.5 cm ulcerated broad-based polyp in the proximal body the stomach status post biopsy 2. Colonoscopy revealed a 5 mm transverse colon polyp that was removed by cold biopsy and moderate sigmoid diverticulosis Recommendations: Findings of this examination were discussed with the patient as well as. She was advised to follow with the biopsy results. Diet will be advanced as tolerated. Hematology consultation for anemia
--- NOTE | 2019-08-28 15:15 | P.CONS ---
History of Present Illness - Reason for Consult Consult date: 08/28/19 Anemia Requesting physician: Steven Ceja - Chief Complaint URI fatigue - History of Present Illness Nat presented at the direction of her PCP for work-up of unexplained anemia after being seen for cough, SOB and fatigue. Recently on antibiotics and steroids. She presented with hemoglobin 6.8 and therefore hematology was consulted. There is no visible or noted blood per patient and no history of prior transfusions due to anemia. Review of Systems A 14 point review of systems assessed and completed and all negative except HPI Past Medical History Past Medical History: Hypertension History of Any Multi-Drug Resistant Organisms: None Reported Past Surgical History: Orthopedic Surgery Past Psychological History: No Psychological Hx Reported Smoking Status: Never smoker Past Alcohol Use History: None Reported Past Drug Use History: None Reported Medications and Allergies Home Medications Medication Instructions Recorded Confirmed Type Aspirin EC [Ecotrin] 325 mg PO DAILY PRN 08/27/19 08/27/19 History Bisoprolol/Hydrochlorothiazide 1 tab PO DAILY 08/27/19 08/27/19 History [Bisoprolol-Hctz 5-6.25 mg Tab] Multivitamins, Thera [Multivitamin 1 tab PO DAILY 08/27/19 08/27/19 History (formulary)] Allergies Allergy/AdvReac Type Severity Reaction Status Date / Time adhesive tape Allergy Rash/Hives Verified 08/27/19 11:17 Physical Exam Vitals: Vital Signs Temp Pulse Pulse Resp BP BP Pulse Ox 08/28/19 12:00 98.1 F 91 16 129/60 93 L 08/28/19 10:46 98.6 F 87 16 136/70 93 L 08/28/19 08:00 98.3 F 94 18 139/69 93 L 08/28/19 06:15 98.7 F 92 18 154/67 93 L 08/28/19 05:45 98.7 F 98 18 152/69 97 08/28/19 05:35 98.5 F 89 18 139/78 94 L 08/28/19 04:00 99.2 F 93 18 133/60 94 L 08/27/19 23:55 98.3 F 95 18 138/62 95 08/27/19 19:58 98.5 F 96 18 147/65 99 08/27/19 19:45 98.5 F 96 18 147/65 99 08/27/19 17:15 98.8 F 92 16 142/64 08/27/19 16:55 98.9 F 89 16 130/59 08/27/19 16:50 98.1 F 93 16 132/62 08/27/19 16:00 98.4 F 87 16 133/63 94 L 08/27/19 15:28 99.0 F 89 20 138/71 95 Intake and Output 08/28/19 08/28/19 08/28/19 06:59 14:59 22:59 Intake Total 3000 0 Balance 3000 0 Intake: Oral 3000 Blood Product 0 0 Rc As-1 Unit 0 0 [id number] Other: Voiding Method Toilet # Voids 2 1 # Bowel Movements 3 Weight 100.5 kg - Constitutional General appearance: average body habitus, no acute distress - EENT Eyes: EOMI, normal appearance ENT: NA/AT - Neck supple - Respiratory Respiratory: bilateral: CTA - Cardiovascular Rhythm: regular Heart sounds: normal: S1, S2 - Gastrointestinal General gastrointestinal: normal bowel sounds, soft - Integumentary Integumentary: pale - Neurologic non focal - Musculoskeletal Musculoskeletal: generalized weakness - Psychiatric Psychiatric: A&O x's 3 Results CBC & Chem 7: 08/28/19 12:01 08/27/19 11:28 Labs: Abnormal Lab Results - Last 24 Hours (Table) 08/27/19 08/27/19 08/28/19 Range/Units 11:28 11:28 03:02 RBC 2.18 L (3.80-5.40) m/uL Hgb 6.4 L* D (11.4-16.0) gm/dL Hct 18.3 L* (34.0-46.0) % Lymphocytes # 0.7 L (1.0-4.8) k/uL Iron 218 H (50-170) ug/dL Iron Saturation 88.98 H (12.00-45.00) Ferritin 698.8 H (10.0-291.0) ng/mL Crossmatch See Detail 08/28/19 Range/Units 12:01 RBC 2.55 L (3.80-5.40) m/uL Hgb 7.1 L (11.4-16.0) gm/dL Hct 21.7 L (34.0-46.0) % Lymphocytes # 0.6 L (1.0-4.8) k/uL Iron (50-170) ug/dL Iron Saturation (12.00-45.00) Ferritin (10.0-291.0) ng/mL Crossmatch Microbiology - Last 24 Hours (Table) 08/27/19 11:28 Blood Culture - Preliminary Blood No Growth after 24 hours Assessment and Plan Plan: Normocytic Anemia: - GI evaluation EGD and colonoscopy - Work-up in progress - Transfuse hemoglobin less than 7 Physician Attest: I have completed the full history and physical and devloped improession and plan, agree with above dictated as scribe
[2019-08-28 20:10] LABS: Basophils % (A) 0 %; Eosinophils # (A) 0.1 k/uL (0-0.7); Eosinophils % (A) 1 %; HCT 20.9 % (34.0-46.0); HGB 7.2 gm/dL (11.4-16.0); Lymphocytes # (A) 0.6 k/uL (1.0-4.8); Lymphocytes % (A) 12 %; MCH 29.4 pg (25.0-35.0); MCHC 34.5 g/dL (31.0-37.0); MCV 85.1 fL (80.0-100.0); Mean Platelet Volume 8.2; Monocytes # (A) 0.3 k/uL (0-1.0); Monocytes % (A) 7 %; Neutrophils # (A) 3.5 k/uL (1.3-7.7); Neutrophils % (A) 77 %; Platelet Count 255 k/uL (150-450); RBC 2.45 m/uL (3.80-5.40); RDW 14.7 % (11.5-15.5); WBC 4.5 k/uL (3.8-10.6)
[2019-08-29 02:04] LABS: Basophils % (A) 0 %; Eosinophils # (A) 0.1 k/uL (0-0.7); Eosinophils % (A) 1 %; Lymphocytes # (A) 0.7 k/uL (1.0-4.8); Lymphocytes % (A) 17 %; MCH 28.3 pg (25.0-35.0); MCHC 33.2 g/dL (31.0-37.0); MCV 85.3 fL (80.0-100.0); Mean Platelet Volume 8.5; Monocytes # (A) 0.3 k/uL (0-1.0); Monocytes % (A) 7 %; Neutrophils % (A) 72 %; Platelet Count 231 k/uL (150-450); RBC 2.29 m/uL (3.80-5.40); RDW 14.8 % (11.5-15.5); WBC 4.2 k/uL (3.8-10.6)
[2019-08-29 02:24] LABS: HGB 6.5 gm/dL (11.4-16.0)
[2019-08-29 02:25] LABS: HCT 19.5 % (34.0-46.0)
[2019-08-29 04:26] LABS: Protein, Total 5.2 g/dL (6.2-8.2)
[2019-08-29 05:23] LABS: Rheumatoid Factor 7 IU/mL (0-15)
[2019-08-29] MEDS ORDERED: ASPIRIN 325 MG TAB PO PRN (08:11)
--- NOTE | 2019-08-29 08:14 | P.PN ---
Subjective Principal diagnosis: Anemia. The patient is 69-year-old white female with known history of hypertension who has come in with significant anemia. She needed 1 more unit of PRBC today. Otherwise, EGD and colonoscopy did not show significant signs of pathology to explain her anemia.. No significant fever or chills. No nausea, vomiting or diarrhea. No history of melena or hematochezia stated. No hematuria noted. Objective - Vital Signs Vital signs: Vital Signs Temp 98.8 F 08/29/19 06:03 Pulse 90 08/29/19 06:03 Resp 18 08/29/19 06:03 BP 158/72 08/29/19 06:03 Pulse Ox 94 L 08/29/19 06:03 Intake & Output 08/28/19 08/29/19 08/29/19 18:59 06:59 18:59 Intake Total 710 310 Balance 710 310 Weight 99.5 kg Intake: IV 400 Oral 0 Blood Product 310 310 Rc As-1 Unit 310 [id number] Rc As-1 Unit 310 [id number] Other: Voiding Method Toilet # Voids 1 3 - Constitutional General appearance: Present: obese - EENT Eyes: Absent: abnormal pupil - Neck Neck: Absent: lymphadenopathy - Respiratory Respiratory: bilateral: CTA - Cardiovascular Rhythm: regular Heart sounds: normal: S1, S2 Abnormal Heart Sounds: Absent: S3 Gallop - Gastrointestinal General gastrointestinal: Present: soft. Absent: tenderness - Neurologic Neurologic: Present: CNII-XII intact - Psychiatric Psychiatric: Present: A&O x's 3 - Labs CBC & Chem 7: 08/29/19 01:46 08/27/19 11:28 Labs: Abnormal Lab Results - Last 24 Hours (Table) 08/27/19 08/28/19 08/28/19 Range/Units 11:28 12:01 12:01 RBC 2.55 L (3.80-5.40) m/uL Hgb 7.1 L (11.4-16.0) gm/dL Hct 21.7 L (34.0-46.0) % Lymphocytes # 0.6 L (1.0-4.8) k/uL ESR 34 H (0-20) mm/hr Lactate Dehydrogenase (313-618) U/L Total Protein (PEP) (6.2-8.2) g/dL Crossmatch See Detail 08/28/19 08/28/19 08/28/19 Range/Units 12:01 12:01 19:42 RBC 2.45 L (3.80-5.40) m/uL Hgb 7.2 L (11.4-16.0) gm/dL Hct 20.9 L (34.0-46.0) % Lymphocytes # 0.6 L (1.0-4.8) k/uL ESR (0-20) mm/hr Lactate Dehydrogenase 1089 H (313-618) U/L Total Protein (PEP) 5.2 L (6.2-8.2) g/dL Crossmatch 08/29/19 Range/Units 01:46 RBC 2.29 L (3.80-5.40) m/uL Hgb 6.5 L* (11.4-16.0) gm/dL Hct 19.5 L* (34.0-46.0) % Lymphocytes # 0.7 L (1.0-4.8) k/uL ESR (0-20) mm/hr Lactate Dehydrogenase (313-618) U/L Total Protein (PEP) (6.2-8.2) g/dL Crossmatch Microbiology - Last 24 Hours (Table) 08/27/19 11:28 Blood Culture - Preliminary Blood No Growth after 24 hours Assessment and Plan (1) Hypertension Current Visit: Yes Status: Acute Code(s): I10 - ESSENTIAL (PRIMARY) HYPERTENSION SNOMED Code(s): 42713450 (2) Cough Current Visit: Yes Status: Acute Code(s): R05 - COUGH SNOMED Code(s): 23065728 (3) Anemia Current Visit: Yes Status: Acute Code(s): D64.9 - ANEMIA, UNSPECIFIED SNOMED Code(s): 066539116 Plan: Check CBC in a.m. Appreciate hematology input. Prognosis is guarded at this time. See orders otherwise. Time with Patient: Less than 30
[2019-08-29 08:44] LABS: Reticulocyte % 0.4 % (0.5-2.0)
[2019-08-29] MEDS: MULTIVITAMINS, THERA 1 EACH TAB PO SCH (09:43)
[2019-08-29] MEDS: BISOPROLOL-HCTZ 5-6.25 MG 1 EACH TAB PO SCH (10:10)
[2019-08-29 12:00] LABS: Free Kappa Lt Chain Qnt, Serum 1.61 mg/dL (0.33-1.94)
[2019-08-29 12:20] LABS: Immunoglobulin A 51.8 mg/dL (60.0-350.0); Immunoglobulin M 71.8 mg/dL (40.0-280.0)
[2019-08-29 12:38] LABS: Basophils % (A) 0 %; Eosinophils # (A) 0.1 k/uL (0-0.7); Eosinophils % (A) 1 %; HCT 25.8 % (34.0-46.0); Lymphocytes # (A) 0.7 k/uL (1.0-4.8); Lymphocytes % (A) 14 %; MCH 29.1 pg (25.0-35.0); MCHC 34.4 g/dL (31.0-37.0); MCV 84.6 fL (80.0-100.0); Mean Platelet Volume 7.8; Monocytes # (A) 0.2 k/uL (0-1.0); Monocytes % (A) 5 %; Neutrophils # (A) 3.6 k/uL (1.3-7.7); Neutrophils % (A) 76 %; Platelet Count 254 k/uL (150-450); RBC 3.05 m/uL (3.80-5.40); RDW 15.6 % (11.5-15.5); WBC 4.8 k/uL (3.8-10.6)
[2019-08-29 12:41] LABS: HGB 8.9 gm/dL (11.4-16.0)
[2019-08-29] MEDS: PANTOPRAZOLE 40 MG TABLET PO SCH (14:30)
--- NOTE | 2019-08-29 14:37 | PN ---
PROGRESS NOTE DATE OF SERVICE 08/29/2019 Patient is a 69-year-old pleasant white female admitted to hospital with severe symptomatic anemia and hemoglobin of 5 4.5. She got a total of 3 units of blood transfusion. Hemoglobin was down to 6.5 this morning and she was receiving the 4th unit today. She denies any GI symptoms. As a part of workup, she underwent an upper endoscopy as well as colonoscopy which revealed 2 to the gastric polyps with an erosive gastritis. Colonoscopy showed a small 5 mm polyp and sigmoid diverticulosis. Biopsies are still pending at the time of this dictation. She denies any symptoms. PHYSICAL EXAMINATION: She appears comfortable. No apparent distress vital signs stable blood pressure 131/66, pulse 83, temperature 98 HEENT examination unremarkable consulting sclerae anicteric oral cavity no lesions the auscultation. HEART: Regular rate and rhythm. ABDOMEN: Soft. Bowel sounds are positive. Positive no organomegaly extremities no pedal edema skin no rashes. NEUROLOGIC: Alert and oriented x3. No focal deficits. LABS: From today, hemoglobin was 6.5. Repeat hemoglobin after one unit is 8.9, WBC 4.8, and platelets are normal. IMPRESSION: 1. Severe symptomatic anemia with a hemoglobin of 4.8 g/dL, status post total of 4 units of PRBC transfusion, last hemoglobin 8.9. Clinically, no GI symptoms. 2. Status post EGD colonoscopy yesterday that showed gastric polyps in the small colon polyp. Biopsies of which are still pending at the time of this dictation. RECOMMENDATION: 1. Agree with a hematological workup. 2. We will start her on Protonix 40 mg daily for the antral gastritis. 3. The patient was advised to follow up in the office in 2 weeks following discharge from the hospital. At this time we will sign off. Please call us if needed. Thank you for this consultation. MMODL / IJN: [id number] /
--- NOTE | 2019-08-29 15:13 | P.PN ---
Subjective Progress Note Date: 08/29/19 The patient continues to feel fatigued easily. She has not noted any obvious bleeding. She status was EGD and colonoscopy. No nausea or vomiting. Objective - Vital Signs Vital signs: Vital Signs Temp 98.9 F 08/29/19 11:22 Pulse 83 08/29/19 11:22 Resp 18 08/29/19 11:22 BP 131/66 08/29/19 11:22 Pulse Ox 97 08/29/19 11:22 Intake & Output 08/28/19 08/29/19 08/29/19 18:59 06:59 18:59 Intake Total 710 310 120 Balance 710 310 120 Weight 99.5 kg Intake: IV 400 Oral 0 120 Blood Product 310 310 Rc As-1 Unit 310 [id number] Rc As-1 Unit 310 [id number] Other: Voiding Method Toilet # Voids 1 3 0 # Bowel Movements 0 - Constitutional General appearance: Present: no acute distress - EENT Eyes: Present: EOMI ENT: Present: hearing grossly normal, normal oropharynx - Respiratory Respiratory: bilateral: CTA - Cardiovascular Rhythm: regular - Gastrointestinal General gastrointestinal: Present: normal bowel sounds, soft - Musculoskeletal Musculoskeletal: Present: strength equal bilaterally - Psychiatric Psychiatric: Present: A&O x's 3, appropriate affect - Labs CBC & Chem 7: 08/29/19 11:57 08/27/19 11:28 Labs: Abnormal Lab Results - Last 24 Hours (Table) 08/27/19 08/28/19 08/28/19 Range/Units 11:28 12:01 12:01 RBC (3.80-5.40) m/uL Hgb (11.4-16.0) gm/dL Hct (34.0-46.0) % RDW (11.5-15.5) % Lymphocytes # (1.0-4.8) k/uL ESR 34 H (0-20) mm/hr Retic Count (0.5-2.0) % Lactate Dehydrogenase 1089 H (313-618) U/L Total Protein (PEP) (6.2-8.2) g/dL IgG (700.0-1600.0) mg/dL IgA (60.0-350.0) mg/dL Crossmatch See Detail 08/28/19 08/28/19 08/28/19 Range/Units 12:01 12:01 19:42 RBC 2.45 L (3.80-5.40) m/uL Hgb 7.2 L (11.4-16.0) gm/dL Hct 20.9 L (34.0-46.0) % RDW (11.5-15.5) % Lymphocytes # 0.6 L (1.0-4.8) k/uL ESR (0-20) mm/hr Retic Count (0.5-2.0) % Lactate Dehydrogenase (313-618) U/L Total Protein (PEP) 5.2 L (6.2-8.2) g/dL IgG 585.0 L (700.0-1600.0) mg/dL IgA 51.8 L (60.0-350.0) mg/dL Crossmatch 08/29/19 08/29/19 08/29/19 Range/Units 01:46 01:46 11:57 RBC 2.29 L 3.05 L (3.80-5.40) m/uL Hgb 6.5 L* 8.9 L D (11.4-16.0) gm/dL Hct 19.5 L* 25.8 L (34.0-46.0) % RDW 15.6 H (11.5-15.5) % Lymphocytes # 0.7 L 0.7 L (1.0-4.8) k/uL ESR (0-20) mm/hr Retic Count 0.4 L (0.5-2.0) % Lactate Dehydrogenase (313-618) U/L Total Protein (PEP) (6.2-8.2) g/dL IgG (700.0-1600.0) mg/dL IgA (60.0-350.0) mg/dL Crossmatch Microbiology - Last 24 Hours (Table) 08/27/19 11:28 Blood Culture - Preliminary Blood No Growth after 48 hours Assessment and Plan (1) Anemia Narrative/Plan: The patient continues to drop her hemoglobin fairly rapidly. Hemoglobin was down into the 6 range again today of increasing into the 7 range yesterday posttransfusion. With such frequent, and rapid drop in hemoglobin, the main differential is bleeding or hemolysis. The patient's iron studies did not indic ate blood loss, but could have been distorted by her transfusions. In addition I'm studies may not have had time to change in case of acute bleeds. - EGD and colonoscopy reports were reviewed and discussed with the patient. EGD did show ulcerated polypoid lesions in the stomach which could be the source of blood loss no no active bleeding was seen. Await biopsy results. Continue transient support to keep hemoglobin above 7. - Workup for hemolysis is in progress. LDH was elevated but again can be high after transfusion. If pending workup does not indicate hemolysis then blood loss would be the most likely differential. In that case of the patient continues to drop her hemoglobin then additional workup such as tagged RBC scan and/or repeat upper endoscopy should be considered Current Visit: Yes Status: Acute Code(s): D64.9 - ANEMIA, UNSPECIFIED SNOMED Code(s): 259177239 Plan: Defer to the admitting service and other consultants for management of her other medical problems
[2019-08-29 15:26] LABS: Thyroid Stim Immun Quant <0.10 IU/L (<0.10)
[2019-08-30] MEDS: PANTOPRAZOLE 40 MG TABLET PO SCH (06:12)
[2019-08-30 06:52] LABS: HCT 23.4 % (34.0-46.0); HGB 7.8 gm/dL (11.4-16.0); MCH 28.2 pg (25.0-35.0); MCHC 33.2 g/dL (31.0-37.0); Platelet Count 220 k/uL (150-450); RBC 2.76 m/uL (3.80-5.40); RDW 15.7 % (11.5-15.5); WBC 4.6 k/uL (3.8-10.6)
--- NOTE | 2019-08-30 08:42 | P.PN ---
Subjective Principal diagnosis: Anemia. The patient is 69-year-old white female with known history of hypertension who has come in with significant anemia. Otherwise, EGD and colonoscopy did not show significant signs of pathology to explain her anemia.. No significant fever or chills. No nausea, vomiting or diarrhea. No history of melena or hematochezia stated. No hematuria noted. Question element of hemolysis Objective - Vital Signs Vital signs: Vital Signs Temp 98.3 F 08/30/19 08:00 Pulse 97 08/30/19 08:21 Resp 18 08/30/19 08:21 BP 148/65 08/30/19 08:00 Pulse Ox 94 L 08/30/19 08:00 Intake & Output 08/29/19 08/30/19 08/30/19 18:59 06:59 18:59 Intake Total 462 240 Balance 462 240 Weight 101.3 kg Intake: Oral 462 240 Other: Voiding Method Toilet Toilet # Voids 2 1 # Bowel Movements 0 1 3 - Constitutional General appearance: Absent: mild distress - EENT Eyes: Present: abnormal pupil - Respiratory Respiratory: bilateral: CTA - Cardiovascular Rhythm: regular Heart sounds: normal: S1, S2 Abnormal Heart Sounds: Absent: S3 Gallop - Gastrointestinal General gastrointestinal: Present: soft. Absent: tenderness - Musculoskeletal Musculoskeletal: Absent: generalized weakness - Psychiatric Psychiatric: Present: A&O x's 3. Absent: appropriate affect - Labs CBC & Chem 7: 08/30/19 06:04 08/27/19 11:28 Labs: Abnormal Lab Results - Last 24 Hours (Table) 08/28/19 08/29/19 08/29/19 Range/Units 12:01 01:46 11:57 RBC 3.05 L (3.80-5.40) m/uL Hgb 8.9 L D (11.4-16.0) gm/dL Hct 25.8 L (34.0-46.0) % RDW 15.6 H (11.5-15.5) % Lymphocytes # 0.7 L (1.0-4.8) k/uL Retic Count 0.4 L (0.5-2.0) % IgG 585.0 L (700.0-1600.0) mg/dL IgA 51.8 L (60.0-350.0) mg/dL 08/30/19 Range/Units 06:04 RBC 2.76 L (3.80-5.40) m/uL Hgb 7.8 L (11.4-16.0) gm/dL Hct 23.4 L (34.0-46.0) % RDW 15.7 H (11.5-15.5) % Lymphocytes # (1.0-4.8) k/uL Retic Count (0.5-2.0) % IgG (700.0-1600.0) mg/dL IgA (60.0-350.0) mg/dL Microbiology - Last 24 Hours (Table) 08/27/19 11:28 Blood Culture - Preliminary Blood No Growth after 48 hours Assessment and Plan (1) Hypertension Current Visit: Yes Status: Acute Code(s): I10 - ESSENTIAL (PRIMARY) HYPERTENSION SNOMED Code(s): 43154733 (2) Cough Current Visit: Yes Status: Acute Code(s): R05 - COUGH SNOMED Code(s): 34153461 (3) Anemia Current Visit: Yes Status: Acute Code(s): D64.9 - ANEMIA, UNSPECIFIED SNOMED Code(s): 223574700 Plan: Appreciate hematology input. Check CBC in the a.m. at the latest. Dr. Laughlin's group will be covering for the weekend.
[2019-08-30] MEDS: MULTIVITAMINS, THERA 1 EACH TAB PO SCH (10:02)
[2019-08-30] MEDS: BISOPROLOL-HCTZ 5-6.25 MG 1 EACH TAB PO SCH (10:02)
[2019-08-30 11:13] LABS: Albumin 3.07 g/dL (3.80-4.90); Gamma Globulin 0.49 g/dL (0.70-1.50)
--- NOTE | 2019-08-30 13:38 | P.PN ---
Subjective Progress Note Date: 08/30/19 Principal diagnosis: anemia In follow-up today patient has no physical complaints, she is nervous about what is going on. She denies any bleeding, unusual bruising, persistent or progressive weakness or swelling. Patient does not have any pain Objective - Vital Signs Vital signs: Vital Signs Temp 98.3 F 08/30/19 11:39 Pulse 78 08/30/19 11:39 Resp 18 08/30/19 11:39 BP 114/56 08/30/19 11:39 Pulse Ox 95 08/30/19 11:39 Intake & Output 08/29/19 08/30/19 08/30/19 18:59 06:59 18:59 Intake Total 462 240 Output Total 600 Balance 462 -360 Weight 101.3 kg Intake: Oral 462 240 Output: Urine 600 Other: Voiding Method Toilet Toilet Urinal # Voids 2 1 # Bowel Movements 0 1 3 - Constitutional General appearance: Present: cooperative, no acute distress, obese - EENT Eyes: Present: anicteric sclerae, EOMI ENT: Present: hearing grossly normal - Respiratory Details: respirations even and unlabored - Cardiovascular Details: skin warm and dry to the touch, patient slightly pale - Neurologic Neurologic: Present: CNII-XII intact - Musculoskeletal Musculoskeletal: Present: strength equal bilaterally - Psychiatric Psychiatric: Present: A&O x's 3, appropriate affect, intact judgment & insight - Labs CBC & Chem 7: 08/30/19 06:04 08/27/19 11:28 Labs: Abnormal Lab Results - Last 24 Hours (Table) 08/28/19 08/30/19 Range/Units 12:01 06:04 RBC 2.76 L (3.80-5.40) m/uL Hgb 7.8 L (11.4-16.0) gm/dL Hct 23.4 L (34.0-46.0) % RDW 15.7 H (11.5-15.5) % Albumin (PEP) 3.07 L (3.80-4.90) g/dL Kihud-[id number] 0.41 H (0.10-0.40) g/dL Beta Globulins 0.57 L (0.60-1.30) g/dL Gamma Globulins 0.49 L (0.70-1.50) g/dL Microbiology - Last 24 Hours (Table) 08/27/19 11:28 Blood Culture - Preliminary Blood No Growth after 48 hours Assessment and Plan (1) Anemia Narrative/Plan: Hemolysis workup reviewed and is negative. Status post EGD with a polyp, no acute bleeding. Patient is currently pending take RBC scan. Paraproteinemia workup is still pending. Reviewed with patient and what is been done and summarized the results. Discussed diagnoses that we are still working up-acute bleed, paraproteinemi a/malig. If workup does not yield a diagnosis then the next step would be a bone marrow biopsy. She verbalized understanding the plan. All of patient and her 's questions were answered to their satisfaction. Transfuse for hemoglobin of less than 7 unless symptomatic. Patient's hemoglobin was 4.8 on admission. Today it is 7.8, status post 4 units of packed red blood cells over the last 3 days. In the big picture of admission hemoglobin, number of units of transfused and today's hemoglobin, it is relatively stable. Cont work up. Current Visit: Yes Status: Acute Priority: High Code(s): D64.9 - ANEMIA, UNSPECIFIED SNOMED Code(s): 320460877
--- NOTE | 2019-08-30 17:39 | NM ---
EXAMINATION TYPE: NM GI bleeding DATE OF EXAM: 08/30/2019 HISTORY: COMPARISON: NONE Following administration of 3 ml PYP 27 mCi Tc 99m Sodium Pertechnete. Immediate images post injectio n. FINDINGS: Images obtained up to one hour show no evidence of any contrast extravasation to suggest any active G I bleeding. IMPRESSION: Negative exam. No evidence of active GI bleeding.
[2019-08-31] MEDS: PANTOPRAZOLE 40 MG TABLET PO SCH (05:48)
[2019-08-31 06:05] VITALS: PULSE 86
[2019-08-31 06:31] LABS: HCT 22.3 % (34.0-46.0); HGB 7.6 gm/dL (11.4-16.0); MCH 29.1 pg (25.0-35.0); MCHC 34.2 g/dL (31.0-37.0); MCV 85.3 fL (80.0-100.0); Mean Platelet Volume 7.6; Platelet Count 205 k/uL (150-450); RBC 2.61 m/uL (3.80-5.40); RDW 15.2 % (11.5-15.5); WBC 4.1 k/uL (3.8-10.6)
[2019-08-31 06:46] LABS: ALT 45 U/L (9-52); AST 32 U/L (14-36); African American GFR (CKD) >90 (>60 ml/min/1.73 sqM); Alkaline Phosphatase 74 U/L (38-126); Anion Gap 5 mmol/L; Blood Urea Nitrogen 13 mg/dL (7-17); Calcium 8.3 mg/dL (8.4-10.2); Carbon Dioxide 29 mmol/L (22-30); Chloride 106 mmol/L (98-107); Glucose 100 mg/dL (74-99); Potassium 3.8 mmol/L (3.5-5.1); Sodium 140 mmol/L (137-145); Total Bilirubin 0.5 mg/dL (0.2-1.3); Total Protein 5.1 g/dL (6.3-8.2)
--- NOTE | 2019-08-31 08:29 | P.DS ---
Providers Date of admission: 08/27/19 13:48 Attending physician: Silvino Call Consults: 08/27/19 13:53 Consult Physician Urgent Consulting Provider: Virgil Reid Consult Reason/Comments: Anemia Do you want consulting provider notified?: Yes Consult Physician Urgent Consulting Provider: Mandy Hameed Consult Reason/Comments: Anemia Do you want consulting provider notified?: Yes Primary care physician: Silvino Call Hospital Course: Patient was admitted for severe anemia and etiology of which is not clear patient doesn't have any active GI bleed all the workup is negative except for mild gastritis and upper GI endoscopy patient's hemoglobin remained stable. Patient will need further workup with bone marrow biopsy of believe and the patient's B12, folate and iron levels are within normal limits. Hemolysis workup is negative serum protein electrophoresis is pending. Patient's hemoglobin is fairly stable at 7.5 patient will be discharged today with follow- up set Jakub and Dr. Wolf as an outpatient further workup can be done as an outpatient. Patient will be resumed on her home antihypertensive regimen PHYSICAL EXAMINATION: GENERAL: The patient is alert and oriented x3, not in any acute distress. Well developed, well nourished. HEENT: Pupils are round and equally reacting to light. EOMI. No scleral icterus. Does have conjunctival pallor. Normocephalic, atraumatic. No pharyngeal erythema. No thyromegaly. CARDIOVASCULAR: S1 and S2 present. No murmurs, rubs, or gallops. PULMONARY: Chest is clear to auscultation, no wheezing or crackles. ABDOMEN: Soft, nontender, nondistended, normoactive bowel sounds. No palpable organomegaly. MUSCULOSKELETAL: No joint swelling or deformity. EXTREMITIES: No cyanosis, clubbing, or pedal edema. NEUROLOGICAL: Gross neurological examination did not reveal any focal deficits. SKIN: No rashes. Please refer to Jakub's dictation for further details of hospital physician course and other medical problems that were addressed. Plan - Discharge Summary New Discharge Prescriptions: New Omeprazole [PriLOSEC] 40 mg PO -BRKFST #14 capsule. Continue Multivitamins, Thera [Multivitamin (formulary)] 1 tab PO DAILY Bisoprolol/Hydrochlorothiazide [Bisoprolol-Hctz 5-6.25 mg Tab] 1 tab PO DAILY Discontinued Aspirin EC [Ecotrin] 325 mg PO DAILY PRN PRN Reason: Pain Discharge Medication List Bisoprolol/Hydrochlorothiazide [Bisoprolol-Hctz 5-6.25 mg Tab] 1 tab PO DAILY 08/27/19 [History] Multivitamins, Thera [Multivitamin (formulary)] 1 tab PO DAILY 08/27/19 [History] Omeprazole [PriLOSEC] 40 mg PO SANGKFSEdmar #14 oniel. 08/31/19 [Rx] Follow up Appointment(s)/Referral(s): Jose Titus MD [STAFF PHYSICIAN] - 1 Week Silvino Call MD [Primary Care Provider] - 3 Days Mandy Hameed MD [STAFF PHYSICIAN] - 2 Weeks Discharge Disposition: HOME SELF-CARE
[2019-08-31] MEDS: BISOPROLOL-HCTZ 5-6.25 MG 1 EACH TAB PO SCH (09:39)
[2019-08-31] MEDS: MULTIVITAMINS, THERA 1 EACH TAB PO SCH (09:39)
[2019-08-31 10:05] VITALS: BP 126/60; RESP 16; TEMP 98.1
== END 2019-08-31 10:48 | disposition home or self-care (01) | DRG 812 ==
LOC: EC 10:55 → 3SCARD 13:48
PROVIDERS: ADMIT Family Medicine; ATTEND Family Medicine
PROC: 30233N1 Transfusion of Nonautologous Red Blood Cells into Peripheral Vein, Percutaneous Approach (ICD-10-PCS; principal; 2019-08-27)
PROC: 0DB98ZX Excision of Duodenum, Via Natural or Artificial Opening Endoscopic, Diagnostic (ICD-10-PCS; 2019-08-28)
PROC: 0DB78ZX Excision of Stomach, Pylorus, Via Natural or Artificial Opening Endoscopic, Diagnostic (ICD-10-PCS; 2019-08-28)
PROC: 0DB68ZX Excision of Stomach, Via Natural or Artificial Opening Endoscopic, Diagnostic (ICD-10-PCS; 2019-08-28)
PROC: 0DBL8ZX Excision of Transverse Colon, Via Natural or Artificial Opening Endoscopic, Diagnostic (ICD-10-PCS; 2019-08-28 09:35)
DX: D64.9 Anemia, unspecified (principal); I10 Essential (primary) hypertension; J06.9 Acute upper respiratory infection, unspecified; K29.60 Other gastritis without bleeding; K31.7 Polyp of stomach and duodenum; K57.30 Diverticulosis of large intestine without perforation or abscess without bleeding; K63.5 Polyp of colon; Z79.82 Long term (current) use of aspirin; Z82.49 Family history of ischemic heart disease and other diseases of the circulatory system; J32.9 Chronic sinusitis, unspecified; Z79.899 Other long term (current) drug therapy; K25.9 Gastric ulcer, unspecified as acute or chronic, without hemorrhage or perforation
CPT/HCPCS: 36415; 36430; 43239; 45380; 71046; 78278; 80053; 81001; 82272; 82607; 82728; 82784; 83010; 83540; 83550; 83605; 83615; 83735; 83880; 83883; 83921; 84165; 84445; 85025; 85027; 85045; 85610; 85652; 85730; 86038; 86334; 86431; 86850; 86900; 86901; 86920; 87040; 88305; 88341; 88342; 99285

== ENCOUNTER → 2019-10-04 | Outpatient (CLI) | payer MEDICARE ==
[2019-10-04 10:49] LABS: African American GFR (CKD) >90 (>60 ml/min/1.73 sqM); Blood Urea Nitrogen 16 mg/dL (7-17)
--- NOTE | 2019-10-04 12:30 | CT ---
EXAMINATION TYPE: CT abdomen pelvis w con DATE OF EXAM: 10/04/2019 COMPARISON: NONE HISTORY: 69-year-old female Anemia, abnormal liver function TECHNIQUE: Contiguous axial scanning of the abdomen and pelvis following administration of 100 ml Iso kemar 300 IV contrast. Delayed images through the kidneys and coronal/sagittal reconstructions perform ed. CT DLP: 1861.1 mGycm Automated exposure control for dose reduction was used. FINDINGS: Heart upper limits of normal in size without pericardial effusion. Hazy dependent atelectasis without pleural effusion. Tiny hiatal hernia. Liver measures mildly larger 18.1 cm without focal lesion. Portal venous system is patent. No biliary ductal dilatation. Gallbladder, common adrenal glands, and pancreas show no gross abnormal body. Kidneys show bilateral parapelvic cysts. Spleen is enlarged measuring 15.6 cm with multiple masses within measuring up to 3.7 cm. Mildly enlarged gastrohepatic ligament lymph nodes measure up to 1.3 cm. A couple soft tissue nodules within the right pararenal space measure 1 cm and 8 mm. No other mesenteric or retroperitoneal lymphadenopathy seen. Normal appendix. Oral contrast progressed to the splenic flexure. Sigmoid diverticulosis. No pericolo linda inflammatory change. Bladder is urine distended. Uterus anteverted with suspected enhancing fundal endometrial mass measur ing 2.7 x 2.4 cm. Cystic changes of the bilateral ovaries measuring up to 5.5 cm on the right and 6.3 cm on the left. No abnormal fluid collection in the pelvis. No pelvic lymphadenopathy seen. Bones: Degenerative disc disease L5-S1 and within the visualized lower thoracic spine. Hypertrophic f acet arthropathy with grade 1 anterolisthesis at L4-L5. IMPRESSION: 1. SUSPECT ENHANCING FUNDAL ENDOMETRIAL MASS MEASURING 2.7 CM. ENDOMETRIAL CARCINOMA SHOULD BE EXCLUD ED. 2. CYSTIC ENLARGEMENT OF THE BILATERAL KIDNEYS MEASURING UP TO 6.3 CM ON THE LEFT AND 5.5 CM ON THE R IGHT. UNDERLYING CYSTIC EPITHELIAL OVARIAN NEOPLASM IS NOT EXCLUDED. 3. SPLENOMEGALY WITH MULTIPLE SPLENIC MASSES MEASURING UP TO 3.7 CM. LYMPHOMA AND METASTATIC DISEASE ARE IN THE DIFFERENTIAL. 4. A COUPLE GASTROHEPATIC LIGAMENT LYMPH NODES ARE SUSPICIOUS MEASURING UP TO 1.3 CM. A COUPLE SOFT T ISSUE NODULES IN THE RIGHT PARARENAL SPACE ARE ALSO SUSPICIOUS MEASURING 1 CM AND 8 MM. 5. SIGMOID DIVERTICULOSIS. TINY HIATAL HERNIA.
== END | disposition home or self-care (01) ==
LOC: RADCTMAIN 09:32
PROVIDERS: ATTEND Internal Medicine Hematology & Oncology
DX: N28.1 Cyst of kidney, acquired (principal); K57.30 Diverticulosis of large intestine without perforation or abscess without bleeding; R05 Cough; R06.02 Shortness of breath; R16.1 Splenomegaly, not elsewhere classified; R94.5 Abnormal results of liver function studies
CPT/HCPCS: 82565; 84520; 74177; 36415; Q9967 ×2

== ENCOUNTER → 2019-11-23 | Outpatient (CLI) | payer MEDICARE ==
--- NOTE | 2019-11-25 08:03 | PE ---
EXAMINATION TYPE: PET CT fusion skull to thigh DATE OF EXAM: 11/23/2019 COMPARISON: CT abdomen and pelvis October 04, 2019 HISTORY: B-cell lymphoma on recent biopsy in October TECHNIQUE: Following the intravenous administration of 12.905 mCi of F-18 FDG, whole body images are performed from the skull base to the midthigh. Images are reviewed on the computer in the coronal, axial, and sagittal planes. Reconstructed rotating images are created on independent workstation and reviewed on the computer. A noncontrast CT is performed in conjunction with the PET scan. SCAN: Initial Scan FINDINGS: MEDIASTINUM MEAN SUV: 1.18 LIVER MEAN SUV : 2.20 SKULL BASE AND NECK: Some hypermetabolic lymph nodes left supraclavicular and left upper thoracic le vels. For reference left supraclavicular lymph node measures 12 x 9 mm axial image 69 with max SUV of 9.66. For reference lymph node pleural space measures 16 x 11 mm between first and second posterior ribs axial image 70 with max SUV of 6.76. CHEST, MEDIASTINUM, AND HILAR REGION: Abnormal anterior mediastinal 11 x 8 mm lymph node axial image 91 with max SUV of 8.11s. Larger hypermetabolic 1.7 x 1.2 cm mediastinal lymph node anterior to IVC a nd mediastinal fluid or cyst axial image 101, max SUV of 15.52. Small subcentimeter hypermetabolic fo cus left prevertebral level lower thoracic spine axial image 105 noted presumed subcentimeter lymph n odes. Max SUV 3.81 No axillary suspicious hypermetabolic adenopathy. ABDOMEN AND PELVIS: Persistent splenomegaly with marked hypermetabolic uptake, max SUV of 23.45. Liver size normal with several hypermetabolic foci with poor visualization of hypodense CT correlate lesions. Max SUV medial segment left hepatic lobe axial image 132 is. Abnormal prevertebral hypermetabolic subcentimeter adenopathy for reference right L1 level image 155 shows max SUV of 6.97. Hyperdense lesion posterior to the upper pole right kidney axial image 155 shows hypermetabolic uptak e favoring solid mass or neoplasm with max SUV of 13.1. This appears distinct from right kidney. Redemonstration of bilateral pelvic cystic lesions or ovarian cystic neoplasms. Suspicious hypermetab olic focus in the pelvis just right of midline corresponds to more solid lesion presumed within right ovary near image 228 measuring 3.7 x 2.4 cm as it is presumed uterus is anteverted in shape extendin g to left of midline just superior to this. Access UV at this level 29.3. There are subcentimeter hypermetabolic left pelvic lymph node for reference axial image 223 with max SUV of 8.98. There is additional larger lower inferior left pelvic mass possible cervical neoplasm or adenopathy measuring 5.2 x 3.6 cm axial image 233 with max SUV of 27.49. There is abnormal left groin 1.3 x 1.2 cm lymph node axial image 254 with max SUV of 20.68. OSSEOUS STRUCTURES: No suspicious hypermetabolic uptake. OTHER CT: Prominent parapelvic cysts centrally in left kidney. Scattered diverticula in the left and sigmoid colon. Umbilical hernia containing fat and tiny mesenteric vessels. Disc space narrowing lumbosacral junction. Multilevel spurring in the spine. Facet arthropathy lower lumbar levels. IMPRESSION: 1. Splenomegaly with abnormal hypermetabolic uptake. Multiple hypermetabolic liver lesions. Adenopath y or lesions above and below the diaphragm. Findings felt to reflect known lymphoma. 2. Suspicious bilateral pelvic cystic lesions likely reflecting ovarian cystic neoplasms. Concerning lesion lower pelvis could reflect primary cervical neoplasm. Concerning hypermetabolic uptake solid c omponent near right ovarian cystic lesion favors solid component to right ovarian neoplasm. Clinical correlation and gynecology oncology referral advised. Deauville Score 5
== END | disposition home or self-care (01) ==
LOC: RADPETMAIN 07:24
PROVIDERS: ATTEND Internal Medicine Hematology & Oncology
DX: C83.03 Small cell B-cell lymphoma, intra-abdominal lymph nodes (principal); R16.1 Splenomegaly, not elsewhere classified; K76.9 Liver disease, unspecified
CPT/HCPCS: 78815; A9552

== ENCOUNTER → 2019-12-04 | Outpatient (CLI) | payer MEDICARE | END | disposition home or self-care (01) | LOC: LABWHC1 12:49 | PROVIDERS: ATTEND Internal Medicine Hematology & Oncology | DX: Z53.8 Procedure and treatment not carried out for other reasons (principal) ==

== ENCOUNTER → 2019-12-05 | Outpatient (CLI) | payer MEDICARE ==
[~2019-12-05] MED LIST: SODIUM CHLORIDE 0.9% 500 ML 500 ML in EMPTY BAG 1 BAG IV PRN
[2019-12-05 11:35] VITALS: RESP 16
[2019-12-05 13:17] VITALS: BP 115/70; PULSE 91; TEMP 98.9
== END | disposition home or self-care (01) ==
LOC: PROCWHC3 11:00
PROVIDERS: ATTEND Internal Medicine Hematology & Oncology
DX: D64.89 Other specified anemias (principal)
CPT/HCPCS: 86900; 86901; 86850; 86920; 36430; P9016

== ENCOUNTER → 2019-12-12 | Outpatient (CLI) | payer MEDICARE ==
[2019-12-12 09:38] VITALS: BP 129/70; PULSE 76; RESP 18; TEMP 98.2
== END | disposition home or self-care (01) ==
LOC: PROCWHC3 07:11
PROVIDERS: ATTEND Internal Medicine Hematology & Oncology
DX: D50.9 Iron deficiency anemia, unspecified (principal)
CPT/HCPCS: 86900; 86901; 86850; 86920; 36430; P9016; J1642

== ENCOUNTER → 2020-01-11 | Outpatient (CLI) | payer MEDICARE ==
--- NOTE | 2020-01-15 08:34 | PE ---
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 Localization and attenuation correction CT scan was performed. Neck and chest: No suspicious hypermetabolic uptake. No evident cervical or supraclavicular adenopath y. There is a right pectoral Port-A-Cath present coursing via subclavian approach with the tip in the superior vena cava. No evident lung mass. No mediastinal, axillary, or hilar adenopathy. ABDOMEN: No suspicious uptake. No evident liver mass on noncontrast exam. Spleen remains enlarged but does not show significant metabolic uptake. Previously identified retroperitoneal hypermetabolic upt taylor is no longer seen, node has decreased in size Soft tissue focus present anterior to the left jesus l vein may simply represent redundant colon, similar finding on prior exam without hypermetabolic upt taylor. Small umbilical hernia contains fat. Probable ovarian cysts are present bilaterally. No pelvic a denopathy or free fluid. Previously identified inguinal with associated uptake improved, no residual uptake. Osseous structures showed diffuse hypermetabolic uptake likely due to bone marrow activation. There i s a spinal curvature. IMPRESSION: No suspicious hypermetabolic uptake is evident. Response to therapy.
== END | disposition home or self-care (01) ==
LOC: RADPETMAIN 09:22
PROVIDERS: ATTEND Internal Medicine Hematology & Oncology
DX: C83.38 Diffuse large B-cell lymphoma, lymph nodes of multiple sites (principal)
CPT/HCPCS: 78815; A9552

== ENCOUNTER → 2020-03-11 | Outpatient (CLI) | payer MEDICARE ==
[2020-03-11 12:12] LABS: African American GFR (CKD) >90 (>60 ml/min/1.73 sqM); Blood Urea Nitrogen 12 mg/dL (7-17); Non-African American GFR(CKD) >90 (>60 ml/min/1.73 sqM)
--- NOTE | 2020-03-11 13:58 | CT ---
EXAMINATION TYPE: CT ChestAbdPelvis w con DATE OF EXAM: 03/11/2020 COMPARISON: PET/CT dated January 11, 2020 HISTORY: Diffuse large B-cell lymphoma CT DLP: 1619.80 mGycm CONTRAST: CT scan of the chest, abdomen and pelvis is performed with Oral Contrast and with IV Contrast, patien t injected with 100 ml mL of Isovue 300. CT Chest: LUNGS: The lungs are clear and free of infiltrate or atelectasis. No pulmonary nodule or mass is det ected. No pleural effusion or CT evidence of interstitial lung disease. MEDIASTINUM: Thoracic aorta is of normal caliber. The heart is not enlarged. No evidence for media stinal mass or adenopathy. HILAR STRUCTURES: No evidence for mass. No hilar adenopathy is appreciated. OTHER: No significant abnormality. CONTRAST CT ABDOMEN AND PELVIS FINDINGS: LIVER/GB: No calcified gallstones. No space occupying hepatic lesion. Biliary tree is of normal ca liber. PANCREAS: No inflammation. No distinct mass. SPLEEN: No splenic enlargement. No lesion seen. ADRENALS: No nodule. No thickening. KIDNEYS/BLADDER: No hydronephrosis. No nephrolithiasis. No disctinct renal mass. BOWEL: Normal appendix. Normal bowel caliber. No inflammation. GENITAL ORGANS: Bilateral complex ovarian cysts measuring at least 5 cm on the right and 6.2 cm on th e left. Underlying neoplasm not excluded. Direct visualization with ultrasound is advised. The uterus appears to be mildly atrophic. LYMPH NODES: No greater than 1cm abdominal or pelvic lymph nodes are appreciated. AORTA: No significant abnormality. OSSEOUS STRUCTURES: No significant abnormality is seen. OTHER: No significant additional abnormality is seen. IMPRESSION: 1. No evidence for adenopathy. 2.Bilateral complex ovarian cysts measuring at least 5 cm on the right and 6.2 cm on the left. Underl shemar neoplasm not excluded. Direct visualization with ultrasound is advised.
== END | disposition home or self-care (01) ==
LOC: RADPROMAIN 11:04
PROVIDERS: ATTEND Internal Medicine Hematology & Oncology
DX: N83.291 Other ovarian cyst, right side (principal); N83.292 Other ovarian cyst, left side; C83.38 Diffuse large B-cell lymphoma, lymph nodes of multiple sites
CPT/HCPCS: 82565; 84520; 71260; 74177; J1642; Q9967

== ENCOUNTER → 2020-05-05 | Outpatient (CLI) | payer MEDICARE ==
[2020-05-05 11:33] LABS: African American GFR (CKD) >90 (>60 ml/min/1.73 sqM); Blood Urea Nitrogen 15 mg/dL (7-17); Non-African American GFR(CKD) >90 (>60 ml/min/1.73 sqM)
--- NOTE | 2020-05-05 12:54 | CT ---
EXAMINATION TYPE: CT ChestAbdPelvis w con DATE OF EXAM: 05/05/2020 COMPARISON: 03/11/2020 HISTORY: Lymphoma CT DLP: 2172 mGycm Automated exposure control for dose reduction was used. CONTRAST: CT scan of the chest, abdomen and pelvis is performed with Oral Contrast and with IV Contrast, patien t injected with 100 ml mL of Isovue 300. FINDINGS: LUNGS: Subsegmental changes posteriorly within the lungs are suggestive of atelectasis. No sizable pu lmonary nodules. No pneumothorax or pleural effusion.. MEDIASTINUM: There are no greater than 1 cm hilar or mediastinal lymph nodes. No pericardial effusi on is seen. Mediport catheter noted. OTHER: No additional significant abnormality is seen. LIVER/GB: No significant abnormality is appreciated. PANCREAS: No significant abnormality is seen. SPLEEN: Spleen appears heterogeneous and enhancement on both arterial and delayed imaging. Although t his could be related to red pulp white pulp phenomenon recommend ultrasound of the spleen as well as a somewhat atypical appearance. Spleen appears mildly enlarged at 14 cm.. ADRENALS: No significant abnormality is seen. KIDNEYS: No significant abnormality is seen. BOWEL: Bowel gas pattern nonspecific there are changes of diverticulosis.. REPRODUCTIVE ORGANS: Bilateral complex ovarian cysts measuring at least 5 cm on the right and 6.2 cm on the left. Underlying neoplasm not excluded. Direct visualization with ultrasound is advised. The u terus appears to be mildly atrophic. . LYMPH NODES: No greater than 1 cm abdominal or pelvic lymph nodes are appreciated. OSSEOUS STRUCTURES: Hypertrophic and degenerative changes of the spine. Mediport catheter noted. OTHER: Aorta of normal caliber. No free fluid. Fat-containing anterior abdominal wall hernia noted. IMPRESSION: 1. No evidence of pathologic lymphadenopathy. 2. There is atypical enhancement pattern of the spleen. Ultrasound of the spleen is recommended to ex clude underlying neoplasm. Mild splenomegaly noted. 3. Stable bilateral complex adnexal masses recommend ultrasound.
== END | disposition home or self-care (01) ==
LOC: RADPROMAIN 10:36
PROVIDERS: ATTEND Internal Medicine Hematology & Oncology
DX: R16.1 Splenomegaly, not elsewhere classified (principal); C83.38 Diffuse large B-cell lymphoma, lymph nodes of multiple sites; D50.9 Iron deficiency anemia, unspecified; D64.89 Other specified anemias; R06.00 Dyspnea, unspecified
CPT/HCPCS: 82565; 84520; 71260; 74177; J1642; Q9967

== ENCOUNTER → 2020-07-30 | Outpatient (CLI) | payer MEDICARE ==
[2020-07-30 11:46] LABS: African American GFR (CKD) >90 (>60 ml/min/1.73 sqM); Blood Urea Nitrogen 18 mg/dL (7-17); Non-African American GFR(CKD) >90 (>60 ml/min/1.73 sqM)
--- NOTE | 2020-07-30 13:07 | CT ---
EXAMINATION TYPE: CT ChestAbdPelvis w con DATE OF EXAM: 07/30/2020 COMPARISON: 05/05/2020 HISTORY: follow up lymphoma CT DLP: 1626.5 mGycm CONTRAST: CT scan of the chest, abdomen and pelvis is performed with Oral Contrast and with IV Contrast, patien t injected with 100 mL of Isovue 300. CT Chest: LUNGS: The lungs are clear and free of infiltrate or atelectasis. No pulmonary nodule or mass is det ected. No pleural effusion or CT evidence of interstitial lung disease. MEDIASTINUM: Thoracic aorta is of normal caliber. The heart is not enlarged. No evidence for media stinal mass or adenopathy. HILAR STRUCTURES: No evidence for mass. No hilar adenopathy is appreciated. OTHER: No significant abnormality. MediPort catheter noted. CONTRAST CT ABDOMEN AND PELVIS FINDINGS: LIVER/GB: No calcified gallstones. No space occupying hepatic lesion. Biliary tree is of normal ca liber. PANCREAS: No inflammation. No distinct mass. SPLEEN: Mild splenomegaly measuring 13.2 cm greatest dimension. No lesion seen. ADRENALS: No nodule. No thickening. KIDNEYS/BLADDER: No hydronephrosis. No nephrolithiasis. No disctinct renal mass. BOWEL: Normal appendix. Normal bowel caliber. No inflammation. GENITAL ORGANS: Bilateral ovarian masses persist and are nonspecific. Underlying neoplasm not exclude d. Direct visualization recommended. LYMPH NODES: No greater than 1cm abdominal or pelvic lymph nodes are appreciated. AORTA: No significant abnormality. OSSEOUS STRUCTURES: No significant abnormality is seen. OTHER: No significant additional abnormality is seen. IMPRESSION: 1. No evidence for adenopathy within the chest abdomen or pelvis at this time. 2. Mild splenomegaly. 3. Bilateral ovarian masses or cysts which are of uncertain etiology.
== END | disposition home or self-care (01) ==
LOC: RADCTMAIN 09:26
PROVIDERS: ATTEND Internal Medicine Hematology & Oncology
DX: R16.1 Splenomegaly, not elsewhere classified (principal); N83.9 Noninflammatory disorder of ovary, fallopian tube and broad ligament, unspecified
CPT/HCPCS: 82565; 84520; 71260; 74177; 36415; Q9967

== ENCOUNTER → 2020-10-28 | Outpatient (CLI) | payer MEDICARE ==
[2020-10-28 11:18] LABS: African American GFR (CKD) >90 (>60 ml/min/1.73 sqM); Blood Urea Nitrogen 15 mg/dL (7-17); Non-African American GFR(CKD) >90 (>60 ml/min/1.73 sqM)
--- NOTE | 2020-10-28 14:14 | CT ---
EXAMINATION TYPE: CT ChestAbdPelvis w con DATE OF EXAM: 10/28/2020 COMPARISON: 07/30/2020, 05/05/2020, 03/11/2020 HISTORY: 70-year-old female C83.38, follow-up Non-Hodgkin's Lymphoma TECHNIQUE: Contiguous axial scanning of the chest, abdomen, and pelvis performed with IV Contrast, pa tient injected with 100 mL of Isovue 300. Delayed images through the kidneys were obtained. Coronal/s agittal reconstructions performed. CT DLP: 2101.1 mGycm Automated exposure control for dose reduction was used. FINDINGS: CHEST: The heart is normal size without pericardial effusion. There are normal caliber with conventional branching anatomy. Tiny 8 mm hypodense nodule left lobe of the thyroid gland is unchanged. Right anterior chest wall injection port with catheter tip at the upper most SVC. No thoracic lymphadenopathy. Mild dependent atelectasis in the lungs and some additional strandy atelectasis or scarring in the mi d and lower lungs. No consolidation or pleural effusion. ABDOMEN: No focal liver lesion. Portal venous system is patent. No biliary ductal dilatation. Gallbladder, adrenal glands, right kidney, and pancreas appear within normal limits. Stable 1.9 cm pa rapelvic cyst left kidney. The spleen measures 12.8 cm currently versus 13.0 cm on 07/30/2020 and 14.1 cm on 05/05/2020. Some subtle inhomogeneous enhancement suggesting anteriorly, axial image 51 remains but overall improvement from 07/30/2020. No dilated small bowel, free fluid, or free air. No mesenteric or retroperitoneal lymphadenopathy favian ntified. Small periumbilical hernia. Normal appendix. Oral contrast progressed to the mid sigmoid colon. Left-sided colonic diverticulosis , greatest within the sigmoid colon. Mild wall thickening along the proximal sigmoid could be due to nondistention or mild acute diverticulitis. Correlate for any acute symptoms, axial image 104 and 105 . PELVIS: Bladder is urine distended. Uterus is anteverted with suggestion of posterior fundal intramural and s ubserosal fibroids measuring up to 2.1 cm Complex bilateral cystic ovarian lesions measuring up to 6.9 x 4.3 cm on the left (versus 6.6 x 4.2 c m on 03/11/2020) and 5.7 x 3.9 cm on the right (versus 5.8 x 4.1 cm on 03/11/2020). These are not signi ficantly changed. No abnormal fluid collection in the pelvis or pelvic lymphadenopathy. BONES: Mild degenerative change of the hips. Hypertrophic facet arthropathy lower lumbar spine. Endplate spo ndylosis with moderate degenerative disc disease mid to lower thoracic spine. Grade 1 retrolisthesis at L1-L2 and grade 1 anterolisthesis L5-S1. IMPRESSION: 1. SPLEEN SIZE IS STABLE TO MINIMALLY IMPROVED AT 12.8 CM (VERSUS 13.0 CM ON 07/30/2020 AND 14.1 CM ON 05/05/2020). OVERALL ENHANCEMENT HAS ALSO IMPROVED WITH MINIMAL RESIDUAL HETEROGENEOUS ENHANCEMENT ANTE RIORLY. 2. NO NEW OR PROGRESSIVE LYMPHADENOPATHY TO SUGGEST DISEASE PROGRESSION. 3. LEFT-SIDED COLONIC DIVERTICULOSIS, GREATEST IN THE SIGMOID COLON. THERE IS MILD WALL THICKENING NO W ALONG THE PROXIMAL SIGMOID THAT COULD BE DUE TO NONDISTENTION OR MILD ACUTE DIVERTICULITIS. CORRELA TE WITH PATIENT'S SYMPTOMS. 4. KNOWN BILATERAL COMPLEX CYSTIC OVARIAN MASSES/NEOPLASMS. THESE MEASURE UP TO 6.9 CM AND ARE OVERAL L UNCHANGED BACK TO THE COMPARISON STUDY OF 03/11/2020.
== END | disposition home or self-care (01) ==
LOC: RADPROMAIN 10:18
PROVIDERS: ATTEND Internal Medicine Hematology & Oncology
DX: K57.30 Diverticulosis of large intestine without perforation or abscess without bleeding (principal); N83.202 Unspecified ovarian cyst, left side; N83.201 Unspecified ovarian cyst, right side; C83.38 Diffuse large B-cell lymphoma, lymph nodes of multiple sites
CPT/HCPCS: 82565; 84520; 71260; 74177; J1642

== ENCOUNTER → 2021-01-27 | Outpatient (CLI) | payer MEDICARE ==
[2021-01-27 11:28] LABS: African American GFR (CKD) >90 (>60 ml/min/1.73 sqM); Blood Urea Nitrogen 17 mg/dL (7-17); Non-African American GFR(CKD) >90 (>60 ml/min/1.73 sqM)
--- NOTE | 2021-01-28 07:19 | CT ---
EXAMINATION TYPE: CT ChestAbdPelvis w con DATE OF EXAM: 01/27/2021 INDICATION: lymphoma follow up COMPARISON: 10/28/2020 CT DLP: 1965.5 mGycm CONTRAST: Performed with Oral Contrast and with IV Contrast, patient injected with 100 mL of Isovue 300. TECHNIQUE: Axial images at 5 mm thick sections. Reconstructed images in the coronal plane. Delayed images through the kidneys. FINDINGS: CT CHEST: Portion of the thyroid visualized is normal. No suspicious lung nodules or focal infiltrates are present. Punctate nodule within the fissure could reveals tiny lymph node, series 4 image 34. This present previously and is stable. No enlarged mediastinal or hilar adenopathy is evident. The ascending aorta diameter at the level of the main pulmonary artery is 3.2 cm. The main pulmonary artery diameter at the bifurcation is 2.[address] ABDOMEN: There is a periumbilical hernia containing mesenteric fat with 2.8 cm opening. Liver: Normal Spleen: Normal Pancreas: Normal Adrenal glands: The adrenal glands are normal. Gallbladder: Normal Kidneys: No masses are evident. No hydronephrosis is present. No cysts are present. Delayed images were obtained through the kidneys, which remain unremarkable. Aorta: Vascular calcification is within the aorta. Inferior vena cava: Normal. CT PELVIS: Loops of bowel within the abdomen and pelvis are normal. Diverticulosis sigmoid colon There are lo ops of bowel which are incompletely distended or lack oral contrast limiting their evaluation. Appendix: Not identified. No suspicious inflammatory changes or dilated tubular structures are eviden t. Urinary bladder: Normal. Genitourinary structures: Uterus appears normal. There are large cysts in the bilateral ovaries previ ously be complex and measures 6.4 x 4.4 cm on the left and 5.4 x 3.5 cm on the right. This was presen t previously and appear similar. Osseous structures: No suspicious lytic or sclerotic lesions. Lymph nodes: There is a 9 mm lymph node in the right inguinal region. Iliac chain regions are normal. No suspicious periaortic or retrocaval adenopathy is evident. Celiac axis and portal vein regions ar e normal. No retrocrural adenopathy is evident. No mediastinal or hilar adenopathy is evident. Suspic ious axillary adenopathy is present. IMPRESSIONS: 1. No suspicious enlarging or new adenopathy. 2. Stable appearing complex ovarian cysts within the pelvis. 3. Kyphosis without acute diverticulitis.
== END ==
LOC: RADPROMAIN 10:25
PROVIDERS: ATTEND Internal Medicine Hematology & Oncology
DX: N83.209 Unspecified ovarian cyst, unspecified side (principal); M40.209 Unspecified kyphosis, site unspecified
CPT/HCPCS: 82565; 84520; 71260; 74177; 36415; Q9967

== ENCOUNTER → 2021-03-03 | Outpatient (CLI) | payer MEDICARE ==
[2021-03-03 12:59] LABS: Basophils % (A) 0 %; Eosinophils # (A) 0.1 k/uL (0-0.7); Eosinophils % (A) 3 %; HCT 40.1 % (34.0-46.0); HGB 13.7 gm/dL (11.4-16.0); Lymphocytes # (A) 0.8 k/uL (1.0-4.8); Lymphocytes % (A) 14 %; MCH 29.6 pg (25.0-35.0); MCHC 34.2 g/dL (31.0-37.0); MCV 86.6 fL (80.0-100.0); Mean Platelet Volume 8.8; Monocytes # (A) 0.3 k/uL (0-1.0); Monocytes % (A) 6 %; Neutrophils # (A) 4.4 k/uL (1.3-7.7); Neutrophils % (A) 77 %; Platelet Count 140 k/uL (150-450); RBC 4.63 m/uL (3.80-5.40); RDW 14.5 % (11.5-15.5); WBC 5.7 k/uL (3.8-10.6)
== END | disposition home or self-care (01) ==
LOC: LABPAT 11:31
PROVIDERS: ATTEND Obstetrics & Gynecology Obstetrics
DX: Z01.818 Encounter for other preprocedural examination (principal); N84.0 Polyp of corpus uteri; D25.9 Leiomyoma of uterus, unspecified; I10 Essential (primary) hypertension
CPT/HCPCS: 36415; 85025; 93005

== ENCOUNTER 2021-03-08 09:57 | Day surgery (SDC) | payer MEDICARE ==
[2021-03-04 08:52] VITALS: BMI 34.2
[~2021-03-08 09:57] MED LIST changes: +DEXAMETHASONE SOD PHOSPHATE 4 MG/ML 1 ML VIAL IV ONE; +HYDROmorphone 0.5 MG/0.5 ML SYRINGE IVP PRN; +LACTATED RINGERS 1,000 ML IV SCH; +LIDOCAINE 1% (10MG/ML) FOR IV START INTRADERMA PRN; +MIDAZOLAM 2 MG/2 ML VIAL IV PRN; +Pre Op ABX Message 1 EACH MISC MISCELLANE ONE; -SODIUM CHLORIDE 0.9% 500 ML 500 ML in EMPTY BAG 1 BAG IV PRN
[2021-03-08 10:21] VITALS: TEMP 97.6
[2021-03-08] MEDS: ONDANSETRON 4 MG/2 ML VIAL IVP ONE ×2 (10:26→12:22)
[2021-03-08] MEDS ORDERED: LIDOCAINE 1% INJ 10MG/ML (20 ML MDV) ONE (11:10)
[2021-03-08] MEDS ORDERED: PROPOFOL 10 MG/ML 20 ML VIAL IV ONE (11:10)
[2021-03-08] MEDS ORDERED: KETOROLAC 15 MG/ML 1 ML VIAL ONE (11:10)
[2021-03-08] MEDS ORDERED: fentaNYL (PF) 50 MCG/ML 2 ML AMP ONE (11:10)
--- NOTE | 2021-03-08 12:06 | P.OP ---
Date of Procedure: 03/08/21 Preoperative Diagnosis: Endometrial polyp Postoperative Diagnosis: Same Procedure(s) Performed: Hysteroscopy, dilation and curettage Anesthesia: MAC Surgeon: Asuncion Valadez Estimated Blood Loss (ml): 2 IV fluids (ml): 300 Urine output (ml): 50 Pathology: other (Endometrial curettings with polyp) Condition: stable Disposition: PACU Indications for Procedure: Endometrial polyp noted within the endometrial cavity on ultrasound Operative Findings: Endometrial polyp appreciated on the left lateral uterine wall Description of Procedure: Patient was seen in the preoperative area and informed consent is obtained. Patient is taken back to the operating suite where general anesthesia was obtained without difficulty by the anesthesia department. Patient is prepped and draped in normal sterile fashion in the dorsal lithotomy position. A red rubber catheter was then used to drain the bladder of clear yellow urine. The weighted speculum was placed in the posterior vaginal vault the anterior lip of the cervix is visualized and grasped with a single-tooth tenaculum. The endocervical canal was then dilated. Hysteroscope was placed through the cervix and toward the endometrial cavity the above-noted findings were visualized. Pictures were taken and the hysteroscope was removed. A sharp curettage was performed and the polyp was noted to be removed during the procedure. The cecal tooth tenaculum was taken off of the anterior lip of the cervix and hemostasis was appreciated. All instruments were then removed from the patient's vaginal vault. All counts were noted be correct 2 at the end of the procedure. Patient was taken to the recovery room awake in stable condition.
[2021-03-08 12:22] VITALS: RESP 16
[2021-03-08 13:30] VITALS: PULSE 59
[2021-03-08 13:42] VITALS: BP 140/67
== END 2021-03-08 13:50 | disposition home or self-care (01) ==
LOC: OR 09:57
PROVIDERS: ATTEND Obstetrics & Gynecology Obstetrics
DX: N88.8 Other specified noninflammatory disorders of cervix uteri (principal); N84.0 Polyp of corpus uteri; I10 Essential (primary) hypertension; E78.5 Hyperlipidemia, unspecified; E66.9 Obesity, unspecified; Z68.35 Body mass index [BMI] 35.0-35.9, adult; K21.9 Gastro-esophageal reflux disease without esophagitis; Z98.42 Cataract extraction status, left eye; Z98.41 Cataract extraction status, right eye; Z98.890 Other specified postprocedural states; Z82.3 Family history of stroke; Z81.8 Family history of other mental and behavioral disorders; Z80.0 Family history of malignant neoplasm of digestive organs; Z80.8 Family history of malignant neoplasm of other organs or systems; Z79.899 Other long term (current) drug therapy; Z91.09 Other allergy status, other than to drugs and biological substances
CPT/HCPCS: 88305; 58558; J1100; J2405; J2001; J3010; J1885; J2704

== ENCOUNTER → 2021-06-02 | Outpatient (CLI) | payer MEDICARE | END | disposition home or self-care (01) | CPT/HCPCS: 82565; 84520; 71260; 74177; 36415; Q9967 ==

== ENCOUNTER → 2021-08-05 | Outpatient (CLI) | payer MEDICARE ==
[2021-08-05 15:23] LABS: African American GFR (CKD) >90 (>60 ml/min/1.73 sqM); Blood Urea Nitrogen 16 mg/dL (7-17); Non-African American GFR(CKD) 89 (>60 ml/min/1.73 sqM)
--- NOTE | 2021-08-06 08:36 | CT ---
EXAMINATION TYPE: CT ChestAbdPelvis w con DATE OF EXAM: 08/05/2021 COMPARISON: Most recent CT June 02, 2021 and older studies. 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 Chemotherapy ended March per patient. CT DLP: 1798.30 mGycm. Automated Exposure Control for Dose Reduction was Utilized. CONTRAST: CT scan of the thorax, abdomen and pelvis is performed with oral and with IV Contrast, patient inject ed with 100 mL of Isovue 300. FINDINGS: LUNGS: Dependent atelectasis bilateral lower lobes. Additional mild basilar linear scarring and/or at electasis. No new nodules or masses. MEDIASTINUM: There are no new greater than 1 cm hilar or mediastinal lymph nodes. No pericardial ef fusion is seen. Heart size stable and upper limits of normal OTHER: Stable right subclavian Mediport catheter. LIVER/GB: Liver cyst stable and within normal limits in size. No new intrahepatic mass or ductal dila tation. PANCREAS: No significant abnormality is seen. SPLEEN: Spleen now normal in size. Heterogeneity is present without distinct measurable hypodense les ion on today's study. ADRENALS: No significant abnormality is seen. KIDNEYS: Simple appearing parapelvic cysts in both kidneys centrally are redemonstrated. BOWEL: Oral contrast reaches rectum. Diverticula throughout the left and sigmoid colon redemonstrated . No CT evidence for acute diverticulitis. Normal contrast filled appendix on coronal image 29 noted. GENITAL ORGANS: Persistent anteverted uterus. Persistent slightly enlarged bilateral ovaries with sev eral bilateral low dense lesions or cysts, no significant interval change from most recent or origina l studies. Within the right aspect of uterus there is a 2.9 x 2.6 cm hyperdense area axial image 105. This area was initially hypermetabolic on the original PET/CT in retrospect. LYMPH NODES: There is a suspicious 2.7 x 2.1 cm left mid abdominal hyperdense mass or lesion axial im age 68 that appears not connected to adjacent bowel, in retrospect and likely was present on most rec ent study axial image 67. OSSEOUS STRUCTURES: Exaggerated spinal curvature. Multilevel facet arthropathy mid to lower lumbar sp ine. Moderate disc space narrowing lumbosacral junction. OTHER: Moderate-sized fat-containing umbilical hernia. IMPRESSION: 1. The 2 suspicious hypodense splenic lesions on most recent study are now not clearly seen. There is stable suspicious lesion in the uterus which correlates with original PET CT in retrospect that resp onded on follow-up CT and stable from most recent CT and a stable suspicious left mid abdominal lesio n from most recent CT. No new or enlarging masses or adenopathy identified.
== END | disposition home or self-care (01) ==
LOC: RADPROMAIN 13:47
PROVIDERS: ATTEND Internal Medicine Hematology & Oncology
DX: C83.33 Diffuse large B-cell lymphoma, intra-abdominal lymph nodes (principal)
CPT/HCPCS: 82565; 84520; 71260; 74177; 36415; Q9967

== ENCOUNTER → 2021-08-18 | Outpatient (CLI) | payer MEDICARE ==
--- NOTE | 2021-08-19 13:48 | MM ---
Reason for exam: screening (asymptomatic). Last mammogram was performed 2 years and 7 months ago. History: Patient is postmenopausal, has history of other cancer at age 69, and is nulliparous. Physical Findings: A clinical breast exam by your physician is recommended on an annual basis and results should be correlated with mammographic findings. MG 3D Screening Mammo W/Cad Bilateral CC and MLO view(s) were taken. Prior study comparison: January 10, 2019, bilateral MG screening mammo w CAD. January 08, 2018, bilateral MG screening mammo w CAD. The breast tissue is heterogeneously dense. This may lower the sensitivity of mammography. There is no discrete abnormality. No significant changes when compared with prior studies. ASSESSMENT: Negative, BI-RAD 1 RECOMMENDATION: Routine screening mammogram of both breasts in 1 year.
== END | disposition home or self-care (01) ==
LOC: RADMAMWWP 12:36
PROVIDERS: ATTEND Family Medicine
DX: Z12.31 Encounter for screening mammogram for malignant neoplasm of breast (principal)
CPT/HCPCS: 77063; 77067

== ENCOUNTER → 2021-11-02 | Outpatient (CLI) | payer MEDICARE ==
[2021-11-02 08:55] LABS: African American GFR (CKD) >90 (>60 ml/min/1.73 sqM); Blood Urea Nitrogen 16 mg/dL (7-17); Non-African American GFR(CKD) 89 (>60 ml/min/1.73 sqM)
--- NOTE | 2021-11-03 13:41 | CT ---
EXAMINATION TYPE: CT ChestAbdPelvis w con DATE OF EXAM: 11/02/2021 INDICATION: Lymphoma COMPARISON: 08/05/2021 CT DLP: 2082 mGycm CONTRAST: Performed with Oral Contrast and with IV Contrast, patient injected with 100 ml mL of Isovue 300. TECHNIQUE: Axial images at 5 mm thick sections. Reconstructed images in the coronal plane. Delayed images through the kidneys. FINDINGS: CT CHEST: There is a tiny hypodensity within the posterior left lobe thyroid. This could be evaluated with ultr asound. No suspicious lung nodules or focal infiltrates are present. A few small lymph nodes are within the left axilla. No suspicious mediastinal or hilar adenopathy is evident. The ascending aorta diameter at the level of the main pulmonary artery is 2.9 cm. The main pulmonary artery diameter at the bifurcation is 2.3 cm. Small hiatal hernia is present CT ABDOMEN: A rounded slightly hyperdense circumscribed structure adjacent to bowel loops is within t he mid abdomen measuring 2.8 x 2.0 cm which is stable from comparison. Series 3 image 70. There is a small periumbilical hernia with an opening of 2.3 cm containing mesenteric fat. No loops of bowel are involved. Liver: Normal Spleen: Normal Pancreas: Normal Adrenal glands: The adrenal glands are normal. Gallbladder: Normal Kidneys: No masses are evident. No hydronephrosis is present. Few small peripelvic cysts are presen t within the kidneys. Delayed images were obtained through the kidneys, which remain otherwise unrem arkable. Aorta: Vascular calcification is within the aorta. Inferior vena cava: Normal. CT PELVIS: Loops of bowel within the abdomen and pelvis are normal. Multiple scattered diverticuli are seen wit hin the colon greater in the sigmoid colon. There are loops of bowel which are incompletely distend ed or lack oral contrast limiting their evaluation. Appendix: Normal as visualized. Urinary bladder: Normal. Genitourinary structures: Uterus appears normal. There oval hypodensities in the adnexa are not prese nt previously. This may be fullness of the ovaries which is stable. Osseous structures: No suspicious lytic or sclerotic lesions. Lymphadenopathy: No suspicious abdominal or pelvic adenopathy is evident. No inguinal adenopathy is n oted. IMPRESSIONS: 1. No suspicious changes to suggest recurrent or metastatic lymphoma. 2. Stable appearance of rounded density within the mid abdomen of uncertain etiology. 3. Fullness of the adnexa. This is stable from comparison. 4. Diverticulosis without acute diverticulitis
== END | disposition home or self-care (01) ==
LOC: RADCTMAIN 07:51
PROVIDERS: ATTEND Internal Medicine Hematology & Oncology
DX: Z03.89 Encounter for observation for other suspected diseases and conditions ruled out (principal); C83.38 Diffuse large B-cell lymphoma, lymph nodes of multiple sites; K57.90 Diverticulosis of intestine, part unspecified, without perforation or abscess without bleeding
CPT/HCPCS: 82565; 84520; 71260; 74177; 36415; Q9967

== ENCOUNTER → 2022-09-06 | Outpatient (CLI) | payer MEDICARE ==
[2022-09-06 11:29] LABS: African American GFR (CKD) >90 (>60 ml/min/1.73 sqM); Blood Urea Nitrogen 18 mg/dL (7-17); Non-African American GFR(CKD) 88 (>60 ml/min/1.73 sqM)
--- NOTE | 2022-09-06 14:22 | CT ---
EXAMINATION TYPE: CT ChestAbdPelvis w con DATE OF EXAM: 09/06/2022 COMPARISON: 03/01/2022, 11/02/2021, 11/23/2019 HISTORY: 72-year-old female C83.38, non-Hodgkin's lymphoma TECHNIQUE: Contiguous axial scanning of the chest, abdomen, and pelvis performed with IV Contrast, pa tient injected with 100 mL of Isovue 370. Delayed images through the kidneys were obtained. Coronal/s agittal reconstructions performed. CT DLP: 2186.40 mGycm Automated exposure control for dose reduction was used. FINDINGS: CHEST: Heart is upper limits of normal in size without pericardial effusion. Aorta normal caliber with conventional branching anatomy. Right anterior chest wall injection port with catheter tip at the brachiocephalic vein confluence. No thoracic lymphadenopathy by CT size criteria. Strandy reticular changes with dependent groundglass in the mid and lower lungs. There may be some un derlying interstitial scarring/fibrosis along with a areas of subsegmental atelectasis. No consolidat ion or pleural effusion. ABDOMEN: Liver borderline in size at 17.4 cm. There may be mild fatty infiltration of the liver. Portal venous system is patent. No biliary ductal dilatation. Gallbladder, adrenal glands, right kidney, spleen, and pancreas within normal limits. Redemonstrated parapelvic cysts of the left kidney measuring 1.6 cm. Stable oval enhancing lesion along the inferior aspect of the distal third portion of the duodenum me asuring 3.0 x 2.2 cm, relatively unchanged. Ongoing attention on follow-up. Possible some type of mes enchymal tumor. No dilated small bowel, free fluid, or free air. No mesenteric or retroperitoneal lymphadenopathy. Normal appendix. Mild stool burden. Left-sided colonic diverticulosis, greatest along the proximal to mid sigmoid colon. No pericolonic inflammatory change. PELVIS: Bladder distended. Uterus is anteverted. A subtle 1.3 cm area of hypodensity along the left uterine f undus remains unchanged.. Bilateral simple cystic adnexal masses measuring up to 6.4 cm on the left a nd 5.7 cm on the right relatively unchanged. No abnormal fluid collection otherwise seen in the pelvi s or pelvic lymphadenopathy. BONES: Mild degenerative change of the hips. Accentuated mid thoracic kyphosis. Hypertrophic facet arthropat hy throughout the lumbar spine. Degenerative grade 1 retrolisthesis L1-L2. Moderate to advanced degen erative disc disease T12-L1 and L1-L2. Baastrup's disease lower lumbar spine. No osseous destructive process seen. Some anterior endplate ankylosis mid thoracic spine noted. IMPRESSION: 1. NO NEW LYMPHADENOPATHY OR MASS TO SUGGEST RECURRENT/METASTATIC DISEASE. 2. STABLE 3.0 CM ENHANCING OVAL MASS ADJACENT TO THE DISTAL THIRD PORTION OF THE DUODENUM. POSSIBLY S OME TYPE OF MESENCHYMAL OR NERVE SHEATH TUMOR. ONGOING ATTENTION ON FOLLOW-UP. 3. CYSTIC BILATERAL OVARIAN MASSES MEASURING UP TO 6.4 CM ARE ALSO STABLE. 4. LEFT-SIDED COLONIC DIVERTICULOSIS GREATEST ALONG THE PROXIMAL TO MID SIGMOID COLON.
== END | disposition home or self-care (01) ==
LOC: RADCTMAIN 10:33
PROVIDERS: ATTEND Internal Medicine Hematology & Oncology
DX: Z03.89 Encounter for observation for other suspected diseases and conditions ruled out (principal); C83.38 Diffuse large B-cell lymphoma, lymph nodes of multiple sites
CPT/HCPCS: 82565; 84520; 71260; 74177; 36415; Q9967

== ENCOUNTER → 2022-10-14 | Outpatient (CLI) | payer MEDICARE ==
--- NOTE | 2022-10-17 10:51 | MM ---
Reason for Exam: Screening (asymptomatic). Last mammogram was performed 1 year(s) and 2 month(s) ago. Patient History: Menarche at age 9. Patient has no children. Postmenopausal. Other cancer, age 69. Risk Values: Shahnaz 5 year model risk: 2.2%. NCI Lifetime model risk: 5.3%. Prior Study Comparison: 11/24/2016 Bilateral Screening Mammogram, [facility]. 12/13/2016 Right Diagnostic Mammogram, [facility]. 01/08/2018 Bilateral Screening Mammogram, [facility]. 01/10/2019 Bilateral Screening Mammogram, [facility]. 08/18/2021 Bilateral Screening Mammogram, [facility]. Tissue Density: The breast tissue is heterogeneously dense. This may lower the sensitivity of mammography. Findings: Analyzed By CAD. There is no suspicious group of microcalcifications or new suspicious mass in either breast. Overall Assessment: Negative, BI-RAD 1 Management: Screening Mammogram of both breasts in 1 year. A clinical breast exam by your physician is recommended on an annual basis and results should be correlated with mammographic findings. [facility] will attempt to contact patient to return for supplemental views and ultrasound if indicated. Electronically signed and approved by: Maykel Luque DO
== END | disposition home or self-care (01) ==
LOC: RADMAMWWP 10:40
PROVIDERS: ATTEND Family Medicine
DX: Z12.31 Encounter for screening mammogram for malignant neoplasm of breast (principal); Z78.0 Asymptomatic menopausal state
CPT/HCPCS: 77063; 77067

== ENCOUNTER → 2023-03-06 | Outpatient (CLI) | payer MEDICARE ==
[2023-03-06 09:59] LABS: African American GFR (CKD) >90 (>60 ml/min/1.73 sqM); Blood Urea Nitrogen 14 mg/dL (7-17); Non-African American GFR(CKD) >90 (>60 ml/min/1.73 sqM)
--- NOTE | 2023-03-06 21:39 | CT ---
EXAMINATION TYPE: CT ChestAbdPelvis w con DATE OF EXAM: 03/06/2023 INDICATION: LYMPHOMA COMPARISON: 09/06/2022 CT DLP: 1760 mGycm CONTRAST: Performed with Oral Contrast and with IV Contrast, patient injected with 70 mL of Isovue 300. TECHNIQUE: Axial images at 5 mm thick sections. Reconstructed images in the coronal plane. Delayed images through the kidneys. FINDINGS: CT CHEST: Portion of the thyroid visualized is normal. No suspicious lung nodules or focal infiltrates are present. No enlarged mediastinal or hilar adenopathy is evident. The ascending aorta diameter at the level of the main pulmonary artery is 3.0 cm. The main pulmonary artery diameter at the bifurcation is 2.[address] ABDOMEN: Liver: There is moderate fatty infiltration of the liver. Spleen: Normal Pancreas: Normal Adrenal glands: The adrenal glands are normal. Gallbladder: Normal Kidneys: No masses are evident. No hydronephrosis is present. No cysts are present. Delayed images were obtained through the kidneys, which remain unremarkable. Aorta: Vascular calcification is within the aorta. Inferior vena cava: Normal. CT PELVIS: Loops of bowel within the abdomen and pelvis are normal. Diverticuli are through the sigmoid colon. There are loops of bowel which are incompletely distended or lack oral contrast limiting their eval uation. Appendix: Normal as visualized. Urinary bladder: Normal. Genitourinary structures: Uterus appears normal. There is a 3.2 cm cyst on the right ovary. There gretchen ear to be 2 adjacent cysts on the left ovary measuring 3.1 and 3.9 cm. Osseous structures: No suspicious lytic or sclerotic lesions. Lymphadenopathy: No enlarged lymphadenopathy is evident. Inguinal regions iliac chains obturator emiliano ls appear normal. No periaortic or retrocaval adenopathy is evident. No enlarged mediastinal or hilar lymphadenopathy is evident. Axillary regions appear clear. Persistent rounded density adjacent to the pancreas and duodenum measures 3.0 x 2.4 cm, stable in siz e. IMPRESSIONS: 1. No suspicious changes to suggest recurrent or metastatic lymphoma. 2. Large ovarian cysts appear similar to comparison. 3. Diverticulosis without acute diverticulitis.
== END | disposition home or self-care (01) ==
LOC: RADCTMAIN 09:23
PROVIDERS: ATTEND Internal Medicine Hematology & Oncology
DX: C83.38 Diffuse large B-cell lymphoma, lymph nodes of multiple sites (principal); N83.201 Unspecified ovarian cyst, right side; N83.202 Unspecified ovarian cyst, left side; K57.30 Diverticulosis of large intestine without perforation or abscess without bleeding; Z03.89 Encounter for observation for other suspected diseases and conditions ruled out
CPT/HCPCS: 82565; 84520; 71260; 74177; 36415; Q9967

== ENCOUNTER → 2023-09-05 | Outpatient (CLI) | payer MEDICARE ==
[2023-09-05 10:23] LABS: African American GFR (CKD) >90 (>60 ml/min/1.73 sqM); Blood Urea Nitrogen 20 mg/dL (7-17); Non-African American GFR(CKD) >90 (>60 ml/min/1.73 sqM)
--- NOTE | 2023-09-05 12:19 | CT ---
EXAMINATION TYPE: CT ChestAbdPelvis w con CT DLP: 1867.80 mGycm, Automated exposure control for dose reduction was used. 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 Two-dimensional cor onal and sagittal reconstructions were obtained. Contrast used:100 mL of Isovue 300 with IV Contrast, Oral contrast used: with Oral Contrast Findings: CHEST: LUNGS/ PLEURA: No evidence for focal consolidation, pneumothorax or pleural effusion. Streaky atelect asis in the lung bases. No suspicious pulmonary nodules. AIRWAY: Patent and unremarkable. HEART: Size within normal limits. MEDIASTINUM: No gross evidence of adenopathy. VASCULATURE: No aortic aneurysm. Right chest wall [id number] with tip terminating in the superior vena cava. MUSCULOSKELETAL: No acute osseous abnormalities. SOFT TISSUES/LYMPH NODES: Unremarkable. LOWER NECK: No significant findings. ABDOMEN: ABDOMEN LIVER: This mass is identified. GALLBLADDER AND BILE DUCTS: Unremarkable. PANCREAS: Unremarkable. SPLEEN: Similar hyperdense areas are seen within the spleen measuring up to 3.3 cm similar prior. ADRENAL GLANDS: Unremarkable. KIDNEYS AND URETERS: No evidence of hydronephrosis or renal calculus. The ureters are unremarkable. PELVIS BLADDER: Unremarkable REPRODUCTIVE: The ovaries are enlarged bilaterally measuring 5.3 x 2.7 and 6.4 x 4.3 cm. ABDOMEN & PELVIS STOMACH AND BOWEL: No evidence of bowel obstruction. Scattered colonic diverticula. There is fat stra nding changes around the sigmoid colon is series 3 image 104. PERITONEUM: No evidence of pneumoperitoneum or free fluid. Soft tissue density measuring 2.0 x 2.3 cm Soft tissue mass near the third portion of the duodenum remains present and may be fractionally large r previously in 11/02/2021 measuring up to 2.9 x 2.1 cm. This lesion was not FDG avid on prior PET/CT. VASCULATURE: No evidence of aortic aneurysm. MUSCULOSKELETAL: No acute osseous abnormalities LYMPH NODES: No gross evidence for lymphadenopathy. SOFT TISSUE/ABDOMINAL WALL: Umbilical hernia. IMPRESSION: 1. There remains no evidence for lymphadenopathy. Hypodense areas within the spleen possibly represe nting residual disease where were FDG avid on prior PET/CT on prior on 01/11/2020. These have become m ore apparent when comparing to exams starting in 2021 and and may have minimally increased in size fr om that time on 03/01/2022. Otherwise no evidence for recurrent disease. 2. There remains soft tissue density near the third/fourth portion of the duodenum of unclear etiolo gy given its close approximation to the bowel or could represent diverticula filled ingested contents . This was not FDG avid on 11/23/2019 exam. 3. Evidence for diverticulitis/colitis involving the sigmoid colon. Correlate with signs and symptom s. 4. Enlarged ovaries likely representing underlying cystic changes. Consider ultrasound imaging of th e pelvis as clinically warranted.
== END | disposition home or self-care (01) ==
LOC: RADCTMAIN 09:30
PROVIDERS: ATTEND Internal Medicine Hematology & Oncology
DX: C83.38 Diffuse large B-cell lymphoma, lymph nodes of multiple sites (principal); D50.9 Iron deficiency anemia, unspecified; D64.89 Other specified anemias; R06.00 Dyspnea, unspecified; K52.9 Noninfective gastroenteritis and colitis, unspecified; N83.8 Other noninflammatory disorders of ovary, fallopian tube and broad ligament
CPT/HCPCS: 82565; 84520; 71260; 74177; 36415; Q9967

== ENCOUNTER → 2023-10-23 | Outpatient (CLI) | payer MEDICARE ==
--- NOTE | 2023-10-24 18:58 | MM ---
Reason for Exam: Screening (asymptomatic). Last screening mammogram was performed 12 month(s) ago. Patient History: Menarche at age 9. Patient has no children. Postmenopausal. Other cancer, age 69. Risk Values: Shahnaz 5 year model risk: 2.2%. NCI Lifetime model risk: 5.0%. Prior Study Comparison: 01/10/2019 Bilateral Screening Mammogram, [facility]. 08/18/2021 Bilateral Screening Mammogram, [facility]. 10/14/2022 Bilateral MG 3D screening mammo w/cad, [facility]. Tissue Density: The breast tissue is heterogeneously dense. This may lower the sensitivity of mammography. Findings: Analyzed By CAD. Pattern appears symmetrical and stable. Scattered benign-appearing punctate calcifications are present. No suspicious groups of microcalcifications, spiculated or lobular masses, architectural distortion or other secondary signs of malignancy are mammographically apparent. Overall Assessment: Benign, BI-RAD 2 Management: Screening Mammogram of both breasts in 1 year. A negative mammogram report should not preclude additional follow up of suspicious palpable abnormalities. Patient should continue monthly self breast exam. A clinical breast exam by your physician is recommended on an annual basis and results should be correlated with mammographic findings. Electronically signed and approved by: Javier Nguyen D.O. Radiologis
== END | disposition home or self-care (01) ==
LOC: RADMAMWWP 14:32
PROVIDERS: ATTEND Family Medicine
DX: Z12.31 Encounter for screening mammogram for malignant neoplasm of breast (principal); Z78.0 Asymptomatic menopausal state
CPT/HCPCS: 77063; 77067

== ENCOUNTER → 2024-03-18 | Outpatient (CLI) | payer MEDICARE ==
[2024-03-18 12:15] LABS: African American GFR (CKD) >90 (>60 ml/min/1.73 sqM); Blood Urea Nitrogen 17 mg/dL (7-17); Non-African American GFR(CKD) >90 (>60 ml/min/1.73 sqM)
--- NOTE | 2024-03-22 16:11 | CT ---
EXAMINATION TYPE: CT Chest Abd Pelvis w con CT DLP: 1671 mGycm, Automated exposure control for dose reduction was used. DATE OF EXAM: 03/18/2024 1:44 PM COMPARISON: Comparison 09/05/2023 CLINICAL INDICATION:Female, 73 years old with history of C83.38 lymphoma; PHH, f/u lymphoma. Large B- cell lymphoma. Technique: CT Chest Abd Pelvis w con; Multiple axial images were obtained. Two-dimensional coronal an d sagittal reconstructions were obtained. Contrast used:100 mL of Isovue 300 with IV Contrast, Oral contrast used: with Oral Contrast Findings: CHEST: LUNGS/ PLEURA: The lung parenchyma appears unremarkable. AIRWAY: Patent and unremarkable. HEART: Size within normal limits. MEDIASTINUM: No gross evidence of adenopathy. VASCULATURE: No aortic aneurysm. MUSCULOSKELETAL: No acute osseous abnormalities. SOFT TISSUES/LYMPH NODES: Unremarkable. LOWER NECK: No significant findings. ABDOMEN: ABDOMEN LIVER: Unremarkable GALLBLADDER AND BILE DUCTS: Unremarkable. PANCREAS: Unremarkable. SPLEEN: Unremarkable. ADRENAL GLANDS: Unremarkable. KIDNEYS AND URETERS: No evidence of hydronephrosis or renal calculus. The ureters are unremarkable. PELVIS BLADDER: Unremarkable REPRODUCTIVE: Unremarkable. ABDOMEN & PELVIS STOMACH AND BOWEL: Stomach and duodenum are unremarkable. No evidence of bowel obstruction. PERITONEUM: No evidence of pneumoperitoneum or free fluid. VASCULATURE: No evidence of aortic aneurysm. MUSCULOSKELETAL: No acute osseous abnormalities LYMPH NODES: No gross evidence for lymphadenopathy. SOFT TISSUE/ABDOMINAL WALL: Unremarkable IMPRESSION: 1. There remains no evidence for lymphadenopathy. Hypodense areas within the spleen, seen on prior ex am, are not appreciated on today's exam.
== END | disposition home or self-care (01) ==
LOC: RADCTMAIN 11:38
PROVIDERS: ATTEND Internal Medicine Hematology & Oncology
DX: C83.38 Diffuse large B-cell lymphoma, lymph nodes of multiple sites (principal); D50.9 Iron deficiency anemia, unspecified; D64.89 Other specified anemias; R06.00 Dyspnea, unspecified
CPT/HCPCS: 82565; 84520; 71260; 74177; 36415; Q9967

== ENCOUNTER 2024-07-26 09:51 | Day surgery (SDC) | payer MEDICARE ==
[~2024-07-26 09:51] MED LIST changes: -DEXAMETHASONE SOD PHOSPHATE 4 MG/ML 1 ML VIAL IV ONE; -HYDROmorphone 0.5 MG/0.5 ML SYRINGE IVP PRN; -LACTATED RINGERS 1,000 ML IV SCH; -LIDOCAINE 1% (10MG/ML) FOR IV START INTRADERMA PRN; -MIDAZOLAM 2 MG/2 ML VIAL IV PRN; -Pre Op ABX Message 1 EACH MISC MISCELLANE ONE; +SODIUM CHLORIDE 0.9% 500 ML 500 ML IV SCH
[2024-07-26 10:09] VITALS: BP 163/70; RESP 16; TEMP 98.4
[2024-07-26] MEDS: IOPAMIDOL-370 100ML BTL INJ ONE (10:36)
--- NOTE | 2024-07-26 11:03 | P.OP ---
Date of Procedure: 07/26/24 Preoperative Diagnosis: Lymphoma with history of right sided mediport dysfunctional mediport Postoperative Diagnosis: Dysfunctional mediport with cracked catheter Procedure(s) Performed: Portogram Anesthesia: local Surgeon: Blanco Cotton Estimated Blood Loss (ml): 0 Pathology: none sent Condition: stable Disposition: PACU Indications for Procedure: 73 year old female with history of lymphoma and previous chemotherapy via right sided chest catheter presents to the crown and bridge dental lab technician for portogram due to dysfuntion of the mediport last week and some chest discomfort. Operative Findings: right chest mediport in place with tortuous catheter appears cracked and kinked. Distal tip pulled back and located in the subclavian vein Description of Procedure: After written and informed consent was obtained the patient was brought to the crown and bridge dental lab technician and placed in a supine position. The area of right chest was visualized under fluoroscopy and shown to have a kink and tortuous catheter. Contrast was then infused after mediport was accessed with Rosas needle and extravasation noted into the chest subcutaneous tissues at the kinked area. The Rosas needle was then removed and area was cleansed and dressed with a band-aid. Patient will need mediport removed which was discussed with the original surgeon Dr. Hartmann. Plan - Discharge Summary Discharge Rx Participant: No New Discharge Prescriptions: No Action Multivitamins, Thera [Multivitamin (formulary)] 1 tab PO DAILY Bisoprolol/Hydrochlorothiazide [Bisoprolol/Hydrochlorothiazide 5-6.25 mg] 5 - 6.25 mg PO DAILY Cholecalciferol (Vitamin D3) [Vitamin D3] 1,000 units PO DAILY Atorvastatin Calcium [Lipitor] 20 mg PO DAILY Magnesium 250 mg PO DAILY Calcium Carbonate [Calcium] 600 mg PO DAILY Ubidecarenone [Co Q-10] 100 mg PO DAILY Ibuprofen [Motrin Ib] 400 mg PO DIRECTED PRN PRN Reason: Pain Discharge Medication List Bisoprolol/Hydrochlorothiazide [Bisoprolol/Hydrochlorothiazide 5-6.25 mg] 5 - 6.25 mg PO DAILY 08/27/19 [History] Multivitamins, Thera [Multivitamin (formulary)] 1 tab PO DAILY 08/27/19 [History] Atorvastatin Calcium [Lipitor] 20 mg PO DAILY 12/05/19 [History] Calcium Carbonate [Calcium] 600 mg PO DAILY 12/05/19 [History] Cholecalciferol (Vitamin D3) [Vitamin D3] 1,000 units PO DAILY 12/05/19 [History] Magnesium 250 mg PO DAILY 12/05/19 [History] Ubidecarenone [Co Q-10] 100 mg PO DAILY 12/17/19 [History] Ibuprofen [Motrin Ib] 400 mg PO DIRECTED PRN 07/24/24 [History] Follow up Appointment(s)/Referral(s): Jose Titus [STAFF PHYSICIAN] - 1 Week (FOLLOW UP NEEDEDF) Activity/Diet/Wound Care/Special Instructions: NOT ABLE TO USE PORT. NON FUNCTIONING. OK TO D/C HOME. Discharge Disposition: HOME SELF-CARE
== END 2024-07-26 10:58 | disposition home or self-care (01) ==
LOC: CATHCVL 09:51
PROVIDERS: ATTEND Surgery
DX: C83.38 Diffuse large B-cell lymphoma, lymph nodes of multiple sites (principal); D64.89 Other specified anemias; D50.9 Iron deficiency anemia, unspecified; R94.5 Abnormal results of liver function studies; Z71.3 Dietary counseling and surveillance; Z79.02 Long term (current) use of antithrombotics/antiplatelets; Z79.899 Other long term (current) drug therapy
CPT/HCPCS: 36598

== ENCOUNTER → 2024-07-31 | Outpatient (CLI) | payer MEDICARE ==
[2024-07-31 12:00] LABS: African American GFR (CKD) >90 (>60 ml/min/1.73 sqM); Blood Urea Nitrogen 19 mg/dL (7-17); Non-African American GFR(CKD) 87 (>60 ml/min/1.73 sqM)
--- NOTE | 2024-07-31 13:52 | CT ---
EXAMINATION TYPE: CT ChestAbdPelvis w con DATE OF EXAM: 07/31/2024 COMPARISON: 03/18/2024, 09/05/2023 HISTORY: 73-year-old female C83.38 lymphoma, history of splenic cancer with left lower quadrant and b ilateral arm pain. TECHNIQUE: Contiguous axial scanning of the chest, abdomen, and pelvis performed with IV Contrast, pa tient injected with 100 mL of Isovue 300. Delayed images through the kidneys were obtained. Coronal/s agittal reconstructions performed. CT DLP: 1952 mGycm Automated exposure control for dose reduction was used. FINDINGS: Chest: Right anterior chest wall injection port with catheter tip at the lower right brachiocephalic vein. Heart upper limits of normal in size without pericardial effusion. Aorta normal caliber with conventional arch vessel branching anatomy. Mild hazy dependent atelectasis in the lungs. Strandy atelectasis or scarring, possible mild fibrosis in the lower lungs characterized by stranding and groundglass densities. Numerous small 4 to 5 mm vague nodules throughout the right lung are unchanged. No consolidation or pleural effusion. ABDOMEN: Tiny hiatal hernia. No focal liver lesion or biliary ductal dilatation. Portal venous system is patent. Gallbladder, adrenal glands, spleen, and pancreas within normal limits. Kidneys show parapelvic cysts measuring up to 2.1 cm on the left. No dilated small bowel, free fluid, or free air. No mesenteric or retroperitoneal lymphadenopathy. Redemonstrated oval, circumscribed nodule measuring 2.0 cm along the inferior margin of the third por tion of the duodenum. This remains unchanged back to at least 06/02/2021. Possible collapsed duodenal d iverticulum given stability. Small fatty umbilical hernia. Oral contrast progressed to the proximal sigmoid colon. Left-sided colonic diverticulosis, greatest i n the sigmoid colon. There is mild pericolonic fat stranding along the proximal sigmoid colon which c ould reflect mild diverticular inflammation. Mild overall stool burden. Pelvis: Bladder nondistended. Uterus is heterogeneous thickening at the undersurface measuring up to 2.6 cm, similar prior. Redemonstrated cystic ovarian lesions measuring up to 5.4 cm on the right and 6.3 cm o n the left, chronic and unchanged. No abnormal fluid collection in the pelvis or pelvic lymphadenopat hy. Bones: Accentuated thoracic kyphosis. [facility] mid and lower thoracic spine. Degenerative grade 1 retrolisthesis L1-L2. No osseous destructive process seen. IMPRESSION: 1. LEFT-SIDED COLONIC DIVERTICULOSIS, GREATEST IN THE SIGMOID COLON. THERE IS MILD FAT STRANDING MAYA G THE PROXIMAL SIGMOID COLON. CORRELATE FOR MILD ACUTE DIVERTICULITIS. NO ABSCESS OR FREE AIR. 2. POSSIBLE CENTRAL THICKENING ALONG THE FUNDAL uterine endometrium. Recommend pelvic ultrasound to f urther evaluate. 3. Stable bilateral ovarian cystic masses measuring up to 5.4 cm as on the right and 6.3 cm on the le ft. Consider [employer] evaluation if not previously performed. Cystic epithelial ovarian neoplasms are i n the differential. 4. Suspect some stable mild fibrosis at the lung bases.
== END | disposition home or self-care (01) ==
LOC: RADCTMAIN 11:20
PROVIDERS: ATTEND Internal Medicine Hematology & Oncology
DX: C83.38 Diffuse large B-cell lymphoma, lymph nodes of multiple sites
CPT/HCPCS: 36415; 71260; 74177; 82565; 84520

== ENCOUNTER → 2024-12-16 | Outpatient (CLI) | payer MEDICARE ==
--- NOTE | 2024-12-16 15:57 | MM ---
Reason for Exam: Screening (asymptomatic). Last mammogram was performed 1 year(s) and 2 month(s) ago. Patient History: Menarche at age 9. Patient has no children. Postmenopausal. Other cancer, age 69. Risk Values: Shahnaz 5 year model risk: 2.2%. NCI Lifetime model risk: 4.7%. Prior Study Comparison: 08/18/2021 Bilateral Screening Mammogram, [facility]. 10/14/2022 Bilateral MG 3D screening mammo w/cad, [facility]. 10/23/2023 Bilateral MG 3D screening mammo w/cad, [facility]. Tissue Density: The breasts are heterogeneously dense, which may obscure small masses. Findings: Analyzed By CAD. Central posterior asymmetric density left MLO view as become more pronounced. However, no significant change in the cc view compared to 2022. This may represent superimposition shadow but further evaluation is recommended. Otherwise, no significant change. Overall Assessment: Incomplete: need additional imaging evaluation, BI-RAD 0 Management: Special View Mammogram of the left breast. [facility] will attempt to contact patient to return for supplemental views and ultrasound if indicated. [facility], , 12/16/2024 3:54 PM. Electronically signed and approved by: Ileana Moreau M.D. Radiologist
== END | disposition home or self-care (01) ==
LOC: RADMAMWWP 13:20
PROVIDERS: ATTEND Family Medicine
DX: Z12.31 Encounter for screening mammogram for malignant neoplasm of breast (principal); Z78.0 Asymptomatic menopausal state; R92.333 Mammographic heterogeneous density, bilateral breasts
CPT/HCPCS: 77063; 77067

== ENCOUNTER → 2024-12-24 | Outpatient (CLI) | payer MEDICARE ==
--- NOTE | 2024-12-24 15:20 | MM ---
Reason for Exam: Additional evaluation requested from abnormal screening. Last screening mammogram was performed less than 1 month ago. Patient History: Menarche at age 9. Patient has no children. Postmenopausal. Other cancer, age 69. Risk Values: Shahnaz 5 year model risk: 2.2%. NCI Lifetime model risk: 4.7%. Prior Study Comparison: 10/14/2022 Bilateral MG 3D screening mammo w/cad, [facility]. 10/23/2023 Bilateral MG 3D screening mammo w/cad, [facility]. 12/16/2024 Bilateral MG 3D screening mammo w/cad, [facility]. Tissue Density: Left: There are scattered areas of fibroglandular density. Findings: Analyzed By CAD. Area of concern/asymmetry compresses out on spot compression imaging. No suspicious masses, calcifications or distortions. Overall Assessment: Benign, BI-RAD 2 Management: Screening Mammogram of both breasts in 1 year. Results were given to the patient verbally at the time of exam. Patient should continue monthly self-breast exams. A clinical breast exam by your physician is recommended on an annual basis. This exam should not preclude additional follow-up of suspicious palpable abnormalities. Note on Shahnaz scores and lifetime risk: 1. A Shahnaz score greater than 3% is considered moderate risk. If this is the case, consider specialist referral to assess eligibility for a risk reducing agent. 2. If overall lifetime risk for the development of breast cancer is 20% or higher, the patient may qualify for future screening with alternating mammogram and breast MRI. [facility], , 12/24/2024 3:18 PM. Electronically signed and approved by: Maykel Luque DO
== END | disposition home or self-care (01) ==
LOC: RADMAMWWP 14:39
PROVIDERS: ATTEND Family Medicine
DX: R92.8 Other abnormal and inconclusive findings on diagnostic imaging of breast (principal); R92.322 Mammographic fibroglandular density, left breast; R92.2 Inconclusive mammogram; Z78.0 Asymptomatic menopausal state
CPT/HCPCS: 77065; G0279; 77061

== ENCOUNTER → 2025-01-29 | Outpatient (CLI) | payer MEDICARE ==
[2025-01-29 11:57] LABS: African American GFR (CKD) >90 (>60 ml/min/1.73 sqM); Blood Urea Nitrogen 22 mg/dL (7-17); Non-African American GFR(CKD) 88 (>60 ml/min/1.73 sqM)
--- NOTE | 2025-01-29 14:53 | CT ---
EXAMINATION TYPE: CT ChestAbdPelvis w con CT DLP: 1945.60 mGycm, Automated exposure control for dose reduction was used. DATE OF EXAM: 01/29/2025 12:50 PM COMPARISON: Multiple CT chest abdomen and pelvis with most recent 07/31/2024 CLINICAL INDICATION:Female, 74 years old with history of C83.38 DIFFUSE LARGE B-CELL LYMPHOMA, LYMPH NODES; PHH, Hx diffuse large b cell lymphoma, routine follow up Technique: Multiple axial images of the chest, abdomen, and pelvis were obtained following the intrav enous administration of 100 mL Isovue-300. Oral contrast was administered. Two-dimensional coronal an d sagittal reconstructions were obtained. Findings: CHEST: LUNGS/ PLEURA: No pleural effusion, pneumothorax, focal consolidation. Mild bilateral lower lobe depe ndent subsegmental atelectasis. Stable vague groundglass 4 to 5 mm nodules throughout the right lung. No new suspicious pulmonary nodule or mass. Elevation of the right hemidiaphragm. AIRWAY: Patent and unremarkable.. HEART: Mildly enlarged.No pericardial effusion No significant coronary artery calcifications. MEDIASTINUM: No evidence of adenopathy. VASCULATURE: No aortic aneurysm. Mild atherosclerotic calcification of the aorta and its branches. MUSCULOSKELETAL: No acute osseous abnormalities. No aggressive osseous lesion. Multilevel degenerativ e disc disease. SOFT TISSUES/LYMPH NODES: Interval removal of right chest wall catheter with scarring identified in t his region. LOWER NECK: No significant findings. ABDOMEN: ABDOMEN LIVER: Unremarkable GALLBLADDER AND BILE DUCTS: Unremarkable. PANCREAS: Unremarkable. SPLEEN: Unremarkable. ADRENAL GLANDS: Unremarkable. KIDNEYS AND URETERS: No evidence of hydronephrosis or renal calculus. The kidneys enhance symmetrical ly. Contrast is demonstrated within both collecting systems and proximal ureters on the delayed phase . Bilateral small renal sinus cysts. PELVIS BLADDER: Underdistended but grossly unremarkable. REPRODUCTIVE: Grossly similar bilateral ovarian cystic lesions with the right measuring 5.1 cm and th e left measuring 6.3 cm. Previously measured 5.4 and 6.3 cm respectively. Unremarkable appearance of the anteverted uterus. ABDOMEN & PELVIS STOMACH AND BOWEL: Small hiatal hernia. Unchanged ovoid well circumscribed nodule abutting the third portion of the duodenum measuring 3.0 cm along the inferior margin of the third portion of the duoden um dating back to 2020. Distal colonic diverticulosis without evidence for acute diverticulitis. Ente avel contrast reaches the descending colon. No focal bowel wall thickening. No evidence of bowel obstr uction. PERITONEUM: No evidence of pneumoperitoneum or free fluid. VASCULATURE: Mild atherosclerotic calcifications are present throughout the abdominal aorta and its b ranches. No abdominal aortic aneurysm. MUSCULOSKELETAL: No acute osseous abnormalities. No aggressive osseous lesion. Multilevel degenerativ e disc disease. Mild retrolisthesis of L1 on L2. LYMPH NODES: No lymphadenopathy. SOFT TISSUE/ABDOMINAL WALL: Small fat filled periumbilical hernia. IMPRESSION: 1. No acute process within the chest, abdomen or pelvis. No lymphadenopathy. 2. Stable bilateral ovarian cystic masses. Consider [employer] evaluation of not previously performed. Cy stic epithelial ovarian neoplasms are again within the differential. 3. Stable ovoid nodular region abutting the third portion of the duodenum favored to represent a dive rticulum. 4. Colonic diverticulosis without evidence for acute diverticulitis. [facility], , 01/29/2025 2:51 PM
== END | disposition home or self-care (01) ==
LOC: RADCTMAIN 10:32
PROVIDERS: ATTEND Internal Medicine Hematology & Oncology
DX: C83.38 Diffuse large B-cell lymphoma, lymph nodes of multiple sites (principal); D50.9 Iron deficiency anemia, unspecified; D64.89 Other specified anemias; R06.00 Dyspnea, unspecified; K57.30 Diverticulosis of large intestine without perforation or abscess without bleeding; N83.291 Other ovarian cyst, right side; N83.292 Other ovarian cyst, left side
CPT/HCPCS: 82565; 84520; 71260; 74177; 36415; Q9967